=== PATIENT | male | born 1960 | race Caucasian/White ===

== ENCOUNTER 2017-08-19 15:08 | Inpatient (IN) | payer MEDICAID ==
--- NOTE | 2017-08-19 15:42 | ED Physician Chart ---
ED Chief Complaint/HPI - Patient Information Date Seen:: 08/19/17 Time Seen:: 15:25 Chief Complaint:: Abdominal Pain History of Present Illness:: onset x 2 day of intermittent, diffuse, crampy abdominal pain; pt denies H/As, S /T, neck pain, C/P, SOB, cough, A/N/V/D/C, fever, chills, or urinary s/s Allergies:: Allergies Allergy/AdvReac Type Severity Reaction Status Date / Time No Known Allergies Allergy Verified 08/19/17 15:24 Vitals:: Vital Signs - 8 hr 08/19/17 15:25 Temp 97.9 F HR 112 RR 17 BP 110/60 O2 Sat % 97 Historian:: Patient, EMS Review:: Nurse's Note Reviewed, EMS run form Reviewed ED Review of Systems - Review of Systems General/Constitutional: No fever, No chills, No weight loss, No weakness, No diaphoresis, No edema, No loss of appetite Skin: No skin lesions, No rash, No bruising Head: No headache, No light-headedness Eyes: No loss of vision, No pain, No diplopia ENT: No earache, No nasal drainage, No sore throat, No tinnitus Neck: No neck pain, No swelling, No thyromegaly, No stiffness, No mass noted Cardio Vascular: No chest pain, No palpitations, No PND, No orthopnea, No edema Pulmonary: No SOB, No cough, No sputum, No wheezing GI: Nausea, Vomiting, Diarrhea, Pain, No melena, No hematochezia, No constipation, No hematemesis G/U: No dysuria, No frequency, No hematuria, No nacturia Musculoskeletal: No bone or joint pain, No back pain, No muscle pain Endocrine: No polyuria, No polydipsia Psychiatric: No prior psych history, No depression, No anxiety, No suicidal ideation, No homicidal ideation, No auditory hallucination, No visual hallucination Hematopoietic: No bruising, No lymphadenopathy Allergic/Immuno: No urticaria, No angioedema Neurological: No syncope, No focal symptoms, No weakness, No paresthesia, No headache, No seizure, No dizziness, No confusion, No vertigo ED Past Medical History - Past Medical History Obtainable: Yes Past Medical History: HTN, Dyslipidemia, PUD/GERD, Arthritis Family History: Diabetes Melitus, HTN Social History: Non Smoker, No Alcohol, No Drug Use, Single, Care Facility Surgical History: other (Colostomy; Laparotomy; Splenectomy) Psychiatricy History: None Medication: Reviewed ED Physical Exam - Physical Examination General/Constitutional: Awake, Well-developed, well-nourished, Alert, No distress, GCS 15, Non-toxic appearing, Ambulatory Head: Atraumatic Eyes: Lids, conjuctiva normal, PERRL, EOMI Skin: Nl inspection, No rash, No skin lesions, No ecchymosis, Well hydrated, No lymphadenopathy ENMT: External ears, nose nl, TM canals nl, Nasal exam nl, Lips, teeth, gums nl , Oropharynx nl, Tonsils nl Neck: Nontender, Full ROM w/o pain, No JVD, No nuchal rigidity, No bruit, No mass, No stridor Respiratory: Nl effort/Exclusion, Clear to Auscultation, No Wheeze/Rhonchi/Rales Cardio Vascular: RRR, No murmur, gallop, rubs, NL S1 S2, Carotid/Femoral/Distal pulses equal bilaterally GI: No tenderness/rebounding/guarding, No organomegaly, No hernia, Normal BS's, Nondistended, No mass/bruits, No McBurney tenderness, Rectum exam nl Other GI comments:: no pulsatile masses; + Colostomy Bag; no active bleeding : No CVA tenderness Extremities: No tenderness or effusion, Full ROM, normal strength in all extremities, No edema, Normal digits & nails Neuro/Psych: Alert/oriented, DTR's symmetric, Normal sensory exam, Normal motor strength, Judgement/insight normal, Mood normal, Normal gait, No focal deficits Misc: Normal back, No paraspinal tenderness ED Labs/Radiology/EKG Results - Lab Results Comments:: WBC: 20.5; ; Na+: 128; Platelets: 766 - Radiology Results Comments:: CXR: NAD - EKG Interpretations EKG Time:: 15:50 Rate & Rhythm: 105; ST Comments:: non-specific st-t changes ED Septic Shock - . Is Septic Shock (SBP<90, OR Lactate>4 mmol\L) present?: No - <6hrs of presentation: Vital Signs: Vital Signs - 8 hr 08/19/17 15:25 Temp 97.9 F HR 112 RR 17 BP 110/60 O2 Sat % 97 ED Reassessment (Disposition) - Reassessment Reassessment Condition:: Improved - Diagnosis Diagnosis:: Hyponatremia; Thrombocythemia; Leukocytosis; Abdominal Pain; Sepsis; Dehydration - Aftercare/Follow up Instructions Aftercare/Follow-Up Instructions:: Counseled pt regarding lab results/diagnosis & need follow up, Counseled pt & family regarding lab results/diagnosis & need follow up - Patient Disposition Discharge/Transfer:: Acute Care w/in this hosp Accepting Physician:: Dr. Oneal Time Called:: [id number] Time Responded:: 17:15 Admitted to:: Telemetry Spoke to:: Dr. Oneal Admitting Medical Physician:: Dr. Oneal Condition at Disposition:: Stable, Improved
[2017-08-19] MEDS ORDERED: Sodium Chloride 0.9% 1,000 ML IV ONE (15:44)
[2017-08-19 16:23] LABS: BASOPHILE ABSOLUTE 0.2 Th/cumm (0-0.2); EOSINOPHILE ABSOLUTE 0.3 Th/cmm (0.1-0.4); HEMATOCRIT 36.3 % (41.0-60); MEAN CELL VOLUME 80.6 fl (80-99); MEAN CORPUSCULAR HEMOGLOBIN 26.5 pg (26.0-30.0); MEAN CORPUSCULAR HGB CONC 32.9 pg (28.0-36.0); MEAN PLATELET VOLUME 6.8 fl; MONOCYTE ABSOLUTE 1.4 Th/cmm (0.3-1.0); NEUTROPHILE ABSOLUTE 15.6 Th/cmm (1.8-8.0); RED BLOOD COUNT 4.51 Mil/cmm (4.30-5.70); RED CELL DISTRIBUTION WIDTH 14.2 % (11.5-20.0)
[2017-08-19 16:30] LABS: WHITE BLOOD COUNT 20.5 Th/cmm (4.8-10.8)
[2017-08-19 16:31] LABS: PLATELET COUNT 766 Th/cmm (150-400)
[2017-08-19 16:45] LABS: ALB/GLOB RATIO 0.7 (1.0-1.8); ALBUMIN 3.2 gm/dL (4.2-5.5); ALKALINE PHOSPHATASE 87 U/L (34-104); ANION GAP 14.7 (7.0-16.0); BILIRUBIN,TOTAL 0.5 mg/dL (0.3-1.0); BUN - UREA NITROGEN 20 mg/dL (7-25); CALCIUM SERUM 9.7 mg/dL (8.6-10.3); CARBON DIOXIDE 20.7 mEq/L (21.0-31.0); CHLORIDE 97 mEq/L (98-107); CHOLESTEROL 78 mg/dL (<200); CREATININE - SERUM 1.1 mg/dL (0.7-1.3); CREATININE KINASE 12 U/L (30-223); GFR AFRICAN-AMERICAN > 60.0 ml/min (>90); GFR NON AFRICAN-AMERICAN > 60.0 ml/min; GLUCOSE 134 mg/dL (70-105); HDL -HIGH DENSITY LIPOPROTEIN 35 mg/dL (23-92); POTASSIUM SERUM 4.4 mEq/L (3.5-5.1); SGOT 27 U/L (13-39); SGPT/ALT 44 U/L (7-52); SODIUM SERUM 128 mEq/L (136-145); TOTAL PROTEIN,SERUM 7.7 gm/dL (6.0-8.3); TRIGLYCERIDES 160 mg/dL (<150)
[2017-08-19 16:46] LABS: AMYLASE SERUM 71 U/L (29-103); LIPASE 19 U/L (11-82)
[2017-08-19 17:08] LABS: INR 1.72 (0.5-1.4); PROTHROMBIN TIME (TEST) 18.4 SECONDS (9.5-11.5)
[2017-08-19] MEDS ORDERED: cefTRIAXone 1 GM in Sodium Chloride 0.9% 50 ML IV ONE (17:13)
[2017-08-19] MEDS ORDERED: Albuterol/Ipratropium Neb 3 ML AERS HHN ONE ×2 (18:54→20:27)
[2017-08-19 18:58] LABS: ATYPICAL LYMPH 1 %; BAND NEUTROPHILE 3 % (0-10); EOSINOPHIL 3 % (0-5); LYMPHOCYTE 19 % (20-50); MONOCYTE 5 % (2-10); NEUTROPHILS 69 % (40-80); TOTAL CELLS COUNTED 100
[2017-08-19 18:59] LABS: HYPOCHROMIA 1+; PLATELET ESTIMATE INCREASED PLATELETS (NORMAL)
[2017-08-19] MEDS ORDERED: Atorvastatin Calcium 10 MG TAB PO SCH (21:00)
[2017-08-19] MEDS ORDERED: Piperacillin Sodium/Tazobact 2.25 gm Vial IV ONE (21:51)
[2017-08-20] MEDS ORDERED: Piperacillin Sodium/Tazobact 2.25 gm Vial IV ONE (03:39)
[2017-08-20] MEDS: Albuterol/Ipratropium Neb 3 ML AERS HHN SCH ×4 (07:39→19:30)
--- NOTE | 2017-08-20 08:06 | Diagnostic Imaging Report ---
CT abdomen and pelvis without intravenous contrast Indication: Abdominal pain Comparison: None, Technique: Axial images were obtained from the lung bases to the bilateral proximal femurs without IV contrast. Reconstructions reconstructions were made. total DLP: 817, CTDI16 FINDINGS: Hypoventilatory atelectatic changes of the lung bases are noted. Assessment of the solid organs is limited due to lack of IV contrast. There are multiple low-density lesions of the liver the largest within the right lobe measuring 2.5 cm. Hounsfield units are most suggestive of cysts. Mildly prominent liver is noted. There are areas of indeterminate low density seen along the peripheral aspects of the spleen. Splenule's are noted. Findings are noted. No focal pancreatic or adrenal lesions. No evidence of hydronephrosis. Mild nonspecific bilateral perinephric inflammatory changes are noted. The prostate gland is markedly enlarged measuring 6 cm transverse x 5 cm AP containing calcifications. Small fat-containing left inguinal hernia are noted. Diffuse postsurgical changes of bowel loops are noted with left lower quadrant ostomy. There is also severe dehiscence of the midline abdominal wall with apposition of bowel loops in this region. Mild inflammatory changes are seen along abdominal wall including the anterior and lateral aspects. There is also small amount of fluid seen along the right lateral abdominal wall measuring 1.5 x 1.6 cm. There may be a small fat-containing hernia in this region. No evidence of free abdominal air or free abdominal fluid. Degenerative changes of the spine and pelvis are noted. There is a 1.6 cm sclerotic lesion of the left intertrochanteric region. Additional sclerotic lesions of the left iliac bone are noted. IMPRESSION: Diffuse postsurgical changes including evidence of bowel resection. Evaluation was limited due to lack of oral contrast, however, no evidence of bowel obstruction. There is severe dehiscence of the midline abdominal wall with close apposition of bowel loops. Please correlate with clinical and surgical history. A left lower quadrant ostomy is also noted. Scattered inflammatory changes throughout the abdominal wall with small amount of fluid seen along the right upper abdominal wall with possible small fat herniation in this region just. Somewhat heterogeneous spleen. Findings are indeterminate however infectious/inflammatory process or subtle splenic infarcts cannot be excluded. If indicated short-term follow CT with IV contrast may provide additional detail and assessment Markedly enlarged prostate gland. Please correlate with clinical findings. 1.6 cm sclerotic lesion of the left femoral intertrochanteric region. Additional sclerotic lesions of the left iliac bone also noted. Given these findings, metastatic disease cannot be excluded and further assessment with nuclear medicine bone scan is recommended. Hepatic low-density lesions most construction sales representative of cysts. The liver is also mildly prominent.
--- NOTE | 2017-08-20 08:09 | Diagnostic Imaging Report ---
Portable chest x-ray HISTORY: Pain Allowing for portable technique, the overall heart size appears to be at the upper limits of normal. No focal pulmonary processes. No hilar or mediastinal abnormalities. IMPRESSION: No acute abnormalities
[2017-08-20] MEDS: Pantoprazole 40 mg EC Tab PO SCH (08:22)
[2017-08-20] MEDS: Aspirin 81mg Chewable Tab PO SCH (08:22)
[2017-08-20] MEDS: Multivitamin w/ Minerals Tab PO SCH (08:22)
[2017-08-20] MEDS: Lactobacillus Rhamnosus GG 15 Billion CFU CAP.SPRINK PO SCH (08:25)
[2017-08-20] MEDS ORDERED: IOHEXOL 300mgI/mL 100 ML VIAL PO ONE (08:38)
[2017-08-20] MEDS ORDERED: Mag Sulfate 2gm/50mL Premix 2 GM/50 ML BAG IV PRN (08:48)
[2017-08-20] MEDS ORDERED: Non-Formulary Item 1 EA (Amino Acids/Protein Hydrolys [Pro-Stat Awc Liquid] 30 ML) PO SCH (09:00)
--- NOTE | 2017-08-20 09:39 | General Progress Note ---
Subjective - Review of Systems Service Date: 08/20/17 Events since last encounter: WBC 20,500 had surgery on 06/18/17 for "ruptured spleen" as a result of coughing? another surgery after that a week later CT scan now shows spleen still visible Plan: obtain old records from [facility] has larger dehisced wound of abdominal incision claims alcohol, denies drugs? blood culture ordered Objective - Results Result Diagrams: 08/19/17 16:07 08/19/17 16:07 Recent Labs: Laboratory Last Values WBC 20.5 Th/cmm (4.8-10.8) H* 08/19/17 16:07 RBC 4.51 Mil/cmm (4.30-5.70) 08/19/17 16:07 Hgb 12.0 gm/dL (12-16) 08/19/17 16:07 Hct 36.3 % (41.0-60) L 08/19/17 16:07 MCV 80.6 fl (80-99) 08/19/17 16:07 MCH 26.5 pg (26.0-30.0) 08/19/17 16:07 MCHC Differential 32.9 pg (28.0-36.0) 08/19/17 16:07 RDW 14.2 % (11.5-20.0) 08/19/17 16:07 Plt Count 766 Th/cmm (150-400) H* 08/19/17 16:07 MPV 6.8 fl 08/19/17 16:07 Band Neutrophils % 3 % (0-10) 08/19/17 16:07 Neutrophils (Manual) 69 % (40-80) 08/19/17 16:07 Lymphocytes 19 % (20-50) L 08/19/17 16:07 Monocytes 5 % (2-10) 08/19/17 16:07 Eosinophils 3 % (0-5) 08/19/17 16:07 Atypical Lymphocytes 1 % 08/19/17 16:07 Hypochromia 1+ 08/19/17 16:07 Platelet Estimate INCREASED PLATELETS (NORMAL) 08/19/17 16:07 Microcytosis 1+ 08/19/17 16:07 PT 18.4 SECONDS (9.5-11.5) H 08/19/17 16:07 INR 1.72 (0.5-1.4) H 08/19/17 16:07 Sodium 128 mEq/L (136-145) L 08/19/17 16:07 Potassium 4.4 mEq/L (3.5-5.1) 08/19/17 16:07 Chloride 97 mEq/L (98-107) L 08/19/17 16:07 Carbon Dioxide 20.7 mEq/L (21.0-31.0) L 08/19/17 16:07 Anion Gap 14.7 (7.0-16.0) 08/19/17 16:07 BUN 20 mg/dL (7-25) 08/19/17 16:07 Creatinine 1.1 mg/dL (0.7-1.3) 08/19/17 16:07 Est GFR ( Amer) > 60.0 ml/min (>90) 08/19/17 16:07 Est GFR (Non-Af Amer) > 60.0 ml/min 08/19/17 16:07 BUN/Creatinine Ratio 18.2 08/19/17 16:07 Glucose 134 mg/dL (70-105) H 08/19/17 16:07 Whole Bld Lactic Acid 1.97 mmol/L (0.60-1.99) 08/19/17 16:07 Calcium 9.7 mg/dL (8.6-10.3) 08/19/17 16:07 Total Bilirubin 0.5 mg/dL (0.3-1.0) 08/19/17 16:07 AST 27 U/L (13-39) 08/19/17 16:07 ALT 44 U/L (7-52) 08/19/17 16:07 Alkaline Phosphatase 87 U/L (34-104) 08/19/17 16:07 Creatine Kinase 12 U/L (30-223) L 08/19/17 16:07 Troponin I < 0.01 ng/mL (0.01-0.05) L 08/19/17 16:07 B-Natriuretic Peptide 11.7 pg/mL (5.0-100.0) 08/19/17 16:07 Total Protein 7.7 gm/dL (6.0-8.3) 08/19/17 16:07 Albumin 3.2 gm/dL (4.2-5.5) L 08/19/17 16:07 Globulin 4.5 gm/dL 08/19/17 16:07 Albumin/Globulin Ratio 0.7 (1.0-1.8) L 08/19/17 16:07 Triglycerides 160 mg/dL (<150) H 08/19/17 16:07 Cholesterol 78 mg/dL (<200) 08/19/17 16:07 LDL Cholesterol Direct 30 mg/dL (75-193) L 08/19/17 16:07 HDL Cholesterol 35 mg/dL (23-92) 08/19/17 16:07 Amylase 71 U/L (29-103) 08/19/17 16:07 Lipase 19 U/L (11-82) 08/19/17 16:07 - Physical Exam Vitals and I&O: Vital Signs Temp 97.0 F 08/20/17 08:39 Pulse 85 08/20/17 08:39 Resp 17 08/20/17 08:39 BP 137/78 08/20/17 08:39 Pulse Ox 100 08/20/17 08:39 Intake & Output 08/19/17 08/20/17 08/20/17 18:59 06:59 18:59 Intake Total 290 Output Total 250 Balance 40 Weight (lbs) 92.986 kg Intake: Intake, IV Amount 50 Piperacillin Sodium/ 50 Tazobact 2.25 gm In Sodium Chloride 0.9% 50 ml @ 100 mls/hr IV Q6H [facility] Rx#:[id number] Oral 240 Output: Other 250 Other: # Voids 400 Stool Characteristics Liquid Brown Active Medications: Current Medications Acetaminophen (Tylenol) 650 mg PO Q6HR PRN PRN Reason: MILD PAIN Stop: 10/18/17 18:50 Albuterol/Ipratropium (Duoneb Neb) 3 ml HHN QIDRT [facility] Stop: 10/19/17 06:59 Last Admin: 08/20/17 07:39 Dose: 3 ml Ascorbic Acid (Vitamin C) 500 mg PO DAILY [facility] Stop: 10/19/17 08:59 Last Admin: 08/20/17 08:22 Dose: 500 mg Aspirin (Aspirin Chewable) 81 mg PO DAILY [facility] Stop: 10/19/17 08:59 Last Admin: 08/20/17 08:22 Dose: 81 mg Atorvastatin Calcium (Lipitor) 40 mg PO HS [facility] Stop: 10/19/17 20:59 Enalapril Maleate (Vasotec) 5 mg PO DAILY [facility] Stop: 10/19/17 08:59 Last Admin: 08/20/17 08:22 Dose: 5 mg Famotidine (Pepcid) 20 mg PO Q12H [facility] Stop: 10/18/17 18:59 Last Admin: 08/20/17 08:20 Dose: 20 mg Heparin Sodium (Porcine) (Heparin) 5,000 units SUBQ Q12HR [facility] Stop: 10/19/17 08:59 Hydroxyzine HCl (Atarax) 25 mg PO Q8H [facility] Stop: 10/18/17 18:59 Last Admin: 08/20/17 03:47 Dose: 25 mg Piperacillin Sod/Tazobactam (Sod 2.25 gm/ Sodium Chloride) 50 mls @ 100 mls/hr IV Q6H [facility] Stop: 10/18/17 18:59 Last Admin: 08/20/17 09:03 Dose: Not Given Dextrose/Sodium Chloride (D5-0.9%Ns) 1,000 mls @ 75 mls/hr IV .[id number] [facility] Stop: 10/19/17 08:44 Magnesium Sulfate (Magnesium Sulfate Premix) 2 gm in 50 mls @ 25 mls/hr IV DAILY PRN PRN Reason: Magnesium level less than 1.6 Stop: 10/19/17 08:47 Lactobacillus Rhamnosus (Culturelle 15b) 1 each PO DAILY [facility] Stop: 10/19/17 08:59 Last Admin: 08/20/17 08:25 Dose: 1 each Loperamide HCl (Imodium) 2 mg PO Q12H [facility] Stop: 10/18/17 18:59 Last Admin: 08/20/17 08:21 Dose: 2 mg Lorazepam (Ativan) 0.5 mg PO Q6H PRN; Protocol PRN Reason: Anxiety Stop: 10/18/17 18:50 Oxycodone/Acetaminophen (Percocet 5/325mg Oral Tab) 1 tab PO Q4H PRN PRN Reason: MOD PAIN Stop: 10/18/17 18:50 Pantoprazole Sodium (Protonix) 40 mg PO DAILY [facility] Stop: 10/19/17 08:59 Last Admin: 08/20/17 08:22 Dose: 40 mg Paroxetine HCl (Paxil) 20 mg PO DAILY [facility] Stop: 10/19/17 08:59 Quetiapine Fumarate (Seroquel) 200 mg PO HS [facility] PRN Reason: Protocol Stop: 10/18/17 20:59 Sucralfate (Carafate) 1 gm PO AC [facility] Stop: 10/19/17 07:29 Last Admin: 08/20/17 08:21 Dose: 1 gm Assessment/Plan - Problem List Patient Problems: All Active Problems ABDOMINAL PAIN WITH NAUSEA AND DYSPNEA (Acute)
--- NOTE | 2017-08-20 11:32 | Diagnostic Imaging Report ---
CT scan abdomen and pelvis with intravenous contrast HISTORY: Pain, splenic infarcts Total DLP equals 855 CTDI equals 16.5 Axial sections were obtained from the xiphoid process down to the pubic symphysis following ministration of intravenous contrast. The exam is compared with a prior noncontrast study of August 19, 2017. Compared with the prior exam, several well-circumscribed round hypodense lesions noted in the liver consistent with cysts. There are 2 focal somewhat wedge-shaped hypodensities within the spleen. The largest measures approximately 2.5 cm. On this postcontrast exam, there is evidence of hypodense subcapsular perisplenic fluid. Exact etiology and significance is uncertain. An approximate 1.8 cm round hypodensity is noted near the splenic hilum consistent with an accessory spleen. No significant focal renal lesions are seen. No hydronephrosis. Again noted is severe dehiscence of the mid abdomen with bowel loops situated immediately adjacent to the exposed abdominal wall. Additional intra-abdominal surgical changes including ostomy placement noted. The exam of the pelvis demonstrates preservation of normal fat planes. No abnormal soft tissue masses or abnormal fluid collections. Again noted is marked enlargement of the prostate gland. Associated encroachment on the floor of the urinary bladder. Multiple sclerotic foci identified within the left pelvic region. Osteoblastic metastatic lesions cannot be excluded. IMPRESSION: 1. Evidence of subcapsular hypodense probably chronic perisplenic fluid. Additional hypodense somewhat wedge-shaped focal defects seen in the spleen. Splenic infarcts cannot be excluded. Exact etiology of the findings is uncertain (has there been a history of prior trauma to this region?). Clinical correlation needed. 2. No other changes from the findings reported in the earlier on the noncontrast exam of August 19, 2017.
--- NOTE | 2017-08-20 12:13 | History & Physical ---
ADMIT DATE: 08/19/2017 CHIEF COMPLAINT: Wound dehiscence. HISTORY OF PRESENT ILLNESS: The patient is a 57-year-old male. He has history of alcohol abuse, but he is not drinking few years. He is originally from [place]. He has been living in [facility]. He was at a sober living house in [facility] about 4 months ago. He states that he sneezed very hard and he had abdominal pain. He presented to the hospital where he was found to have splenic rupture. He is status post exploratory laparotomy and colostomy as well. He cannot give me the details of the surgery, but he says that there is partial splenic removal along with partial colon resection as well. Since then, he is not properly healed. He has been here locally at a [facility] facility. PAST MEDICAL HISTORY: Significant for depression, alcoholism, GERD, and mood disorder. SOCIAL HISTORY: Denies any history of tobacco abuse. He has history of extensive alcohol abuse, but he has been sober for a few years now. FAMILY HISTORY: Noncontributory. ALLERGIES: No known drug allergies. SURGICAL HISTORY: Positive for abdominal surgery about 3-4 months ago. MEDICATIONS: All medications reviewed and reconciled. REVIEW OF SYSTEMS: GENERAL: Positive recent fatigue and decreased appetite. HEENT: Denies any head trauma, change in vision, taste, hearing, or smell. Oral: Denies any pain or discharge. NECK: No recent tracheal deviation. SKIN: No recent rashes. PSYCHIATRIC: He has history of mood disorder and depression. ABDOMEN: Positive for abdominal discomfort. He has history of colostomy and recent surgery. GASTROINTESTINAL: Positive for nausea, but no vomiting. EXTREMITIES: No edema. PSYCHIATRIC: No history of psychosis. He does have a history of depression and mood disorder. RESPIRATORY: No history of COPD or asthma. PHYSICAL EXAMINATION: VITAL SIGNS: Temperature 97 degrees, heart rate is 85, respirations 18, blood pressure 137/78. Currently, there is no pain. He is resting. HEENT: No acute issues. NECK: Trachea is midline. CARDIOVASCULAR: Regular rate and rhythm. RESPIRATORY: Decreased breath sounds bilaterally. ABDOMEN: Wound dressing is intact. EXTREMITIES: No edema. PSYCHIATRIC: No psychosis or hallucination. NEUROLOGIC: No evidence of acute stroke or seizure activity. He has 5+ muscle strength upper and lower extremities. LABORATORY DATA: Sodium 120, potassium 4.4, chloride 97, bicarbonate 20.7, BUN 20, creatinine 1.1, glucose 134. Troponin is less than 0.01. Creatinine is 12. Albumin is 3.2. Amylase and lipase are normal at 71 and ___ respectively. White count is 20.5, hemoglobin is 12, platelet count 766,000. ASSESSMENT/PLAN: 1. Abdominal wound dehiscence. 2. Sepsis. 3. Reactive thrombocytosis. 4. Status post splenic rupture, status post surgery. 5. Gastroesophageal reflux disease. 6. Hyponatremia. 7. Moderate malnutrition. 8. Depression. PLAN: The patient is n.p.o. Dr. Damon has been consulted for surgery. He is on IV Zosyn. Follow up on CBC and cultures. Follow up on CBC and chemistry panel tomorrow. He is on IV D5 NS. He also has reactive thrombocytosis. I will put him on anticoagulation with heparin. Continue his home medications. JOB# [id number]
[2017-08-20 12:15] LABS: HEMATOCRIT 36.3 % (41.0-60); HEMOGLOBIN 11.7 gm/dL (12-16); MEAN CELL VOLUME 80.8 fl (80-99); MEAN CORPUSCULAR HGB CONC 32.2 pg (28.0-36.0); MEAN PLATELET VOLUME 7.2 fl; PLATELET COUNT 745 Th/cmm (150-400); RED BLOOD COUNT 4.49 Mil/cmm (4.30-5.70)
[2017-08-20 12:22] LABS: WHITE BLOOD COUNT 14.2 Th/cmm (4.8-10.8)
[2017-08-20 12:29] LABS: ALB/GLOB RATIO 0.8 (1.0-1.8); ALBUMIN 3.1 gm/dL (4.2-5.5); ALKALINE PHOSPHATASE 84 U/L (34-104); ANION GAP 16.2 (7.0-16.0); BILIRUBIN,TOTAL 0.6 mg/dL (0.3-1.0); BUN - UREA NITROGEN 16 mg/dL (7-25); CALCIUM SERUM 9.7 mg/dL (8.6-10.3); CHLORIDE 98 mEq/L (98-107); GFR AFRICAN-AMERICAN > 60.0 ml/min (>90); GFR NON AFRICAN-AMERICAN > 60.0 ml/min; GLUCOSE 127 mg/dL (70-105); POTASSIUM SERUM 4.2 mEq/L (3.5-5.1); SGOT 25 U/L (13-39); SGPT/ALT 37 U/L (7-52); SODIUM SERUM 133 mEq/L (136-145); TOTAL PROTEIN,SERUM 7.2 gm/dL (6.0-8.3)
[2017-08-20 12:34] LABS: TOTAL CELLS COUNTED 100
[2017-08-20 12:35] LABS: BAND NEUTROPHILE 2 % (0-10); EOSINOPHIL 5 % (0-5); LYMPHOCYTE 21 % (20-50); MONOCYTE 6 % (2-10); NEUTROPHILS 66 % (40-80); PLATELET ESTIMATE SLIGHT DECREASED (NORMAL)
[2017-08-20] MEDS: APAP/Oxycodone 5/325mg Oral Tab PO PRN (16:32)
[2017-08-20] MEDS: D5-0.9%NS 1,000 ML IV SCH (19:13)
[2017-08-21 05:57] LABS: % BASOPHILS 0.8 % (0.0-2.0); % EOSINOPHILS 3.6 % (0.0-5.0); % LYMPHOCYTES 16.8 % (20.0-50.0); % MONOCYTES 8.1 % (2.0-10.0); % NEUTROPHILS 70.7 % (40.0-80.0); BASOPHILE ABSOLUTE 0.1 Th/cumm (0-0.2); EOSINOPHILE ABSOLUTE 0.6 Th/cmm (0.1-0.4); HEMATOCRIT 33.7 % (41.0-60); LYMPHOCYTE ABSOLUTE 2.7 Th/cmm (1.5-3.0); MEAN CELL VOLUME 80.2 fl (80-99); MEAN CORPUSCULAR HEMOGLOBIN 26.2 pg (26.0-30.0); MEAN CORPUSCULAR HGB CONC 32.6 pg (28.0-36.0); MEAN PLATELET VOLUME 7.5 fl; MONOCYTE ABSOLUTE 1.3 Th/cmm (0.3-1.0); NEUTROPHILE ABSOLUTE 11.2 Th/cmm (1.8-8.0); PLATELET COUNT 656 Th/cmm (150-400); RED CELL DISTRIBUTION WIDTH 14.7 % (11.5-20.0)
[2017-08-21 05:58] LABS: WHITE BLOOD COUNT 15.9 Th/cmm (4.8-10.8)
[2017-08-21] MEDS: Albuterol/Ipratropium Neb 3 ML AERS HHN SCH ×4 (06:56→19:13)
[2017-08-21 07:07] LABS: ANION GAP 13.1 (7.0-16.0); BUN - UREA NITROGEN 13 mg/dL (7-25); CALCIUM SERUM 9.5 mg/dL (8.6-10.3); CARBON DIOXIDE 25.7 mEq/L (21.0-31.0); CHLORIDE 99 mEq/L (98-107); CREATININE - SERUM 0.9 mg/dL (0.7-1.3); GFR AFRICAN-AMERICAN > 60.0 ml/min (>90); GFR NON AFRICAN-AMERICAN > 60.0 ml/min; GLUCOSE 141 mg/dL (70-105); POTASSIUM SERUM 3.8 mEq/L (3.5-5.1); SODIUM SERUM 134 mEq/L (136-145)
--- NOTE | 2017-08-21 08:14 | General Progress Note ---
Subjective - Review of Systems Service Date: 08/21/17 Subjective: Pt seen and eval. No pain. Resting in bed. Dr. Damon saw him. He's requested records from [facility]. Pt remembers now that the sx was on may 29, 2017 at [facility]. no n,v,d or cp. No fevers. Has abd discomfort. No falls or sz. Objective - Results Result Diagrams: 08/21/17 04:45 08/21/17 04:45 Recent Labs: Laboratory Last Values WBC 15.9 Th/cmm (4.8-10.8) H 08/21/17 04:45 RBC 4.20 Mil/cmm (4.30-5.70) L 08/21/17 04:45 Hgb 11.0 gm/dL (12-16) L 08/21/17 04:45 Hct 33.7 % (41.0-60) L 08/21/17 04:45 MCV 80.2 fl (80-99) 08/21/17 04:45 MCH 26.2 pg (26.0-30.0) 08/21/17 04:45 MCHC Differential 32.6 pg (28.0-36.0) 08/21/17 04:45 RDW 14.7 % (11.5-20.0) 08/21/17 04:45 Plt Count 656 Th/cmm (150-400) H 08/21/17 04:45 MPV 7.5 fl 08/21/17 04:45 Neutrophils % 70.7 % (40.0-80.0) 08/21/17 04:45 Band Neutrophils % 2 % (0-10) 08/20/17 09:30 Lymphocytes % 16.8 % (20.0-50.0) L 08/21/17 04:45 Monocytes % 8.1 % (2.0-10.0) 08/21/17 04:45 Eosinophils % 3.6 % (0.0-5.0) 08/21/17 04:45 Basophils % 0.8 % (0.0-2.0) 08/21/17 04:45 Neutrophils (Manual) 66 % (40-80) 08/20/17 09:30 Lymphocytes 21 % (20-50) 08/20/17 09:30 Monocytes 6 % (2-10) 08/20/17 09:30 Eosinophils 5 % (0-5) 08/20/17 09:30 Atypical Lymphocytes 1 % 08/19/17 16:07 Hypochromia 1+ 08/19/17 16:07 Platelet Estimate SLIGHT DECREASED (NORMAL) 08/20/17 09:30 Microcytosis 1+ 08/19/17 16:07 PT 18.4 SECONDS (9.5-11.5) H 08/19/17 16:07 INR 1.72 (0.5-1.4) H 08/19/17 16:07 Sodium 134 mEq/L (136-145) L 08/21/17 04:45 Potassium 3.8 mEq/L (3.5-5.1) 08/21/17 04:45 Chloride 99 mEq/L (98-107) 08/21/17 04:45 Carbon Dioxide 25.7 mEq/L (21.0-31.0) 08/21/17 04:45 Anion Gap 13.1 (7.0-16.0) 08/21/17 04:45 BUN 13 mg/dL (7-25) 08/21/17 04:45 Creatinine 0.9 mg/dL (0.7-1.3) 08/21/17 04:45 Est GFR ( Amer) > 60.0 ml/min (>90) 08/21/17 04:45 Est GFR (Non-Af Amer) > 60.0 ml/min 08/21/17 04:45 BUN/Creatinine Ratio 14.4 08/21/17 04:45 Glucose 141 mg/dL (70-105) H 08/21/17 04:45 Whole Bld Lactic Acid 1.97 mmol/L (0.60-1.99) 08/19/17 16:07 Calcium 9.5 mg/dL (8.6-10.3) 08/21/17 04:45 Magnesium 1.9 mg/dL (1.9-2.7) 08/20/17 09:30 Total Bilirubin 0.6 mg/dL (0.3-1.0) 08/20/17 09:30 AST 25 U/L (13-39) 08/20/17 09:30 ALT 37 U/L (7-52) 08/20/17 09:30 Alkaline Phosphatase 84 U/L (34-104) 08/20/17 09:30 Creatine Kinase 12 U/L (30-223) L 08/19/17 16:07 Troponin I < 0.01 ng/mL (0.01-0.05) L 08/19/17 16:07 B-Natriuretic Peptide 11.7 pg/mL (5.0-100.0) 08/19/17 16:07 Total Protein 7.2 gm/dL (6.0-8.3) 08/20/17 09:30 Albumin 3.1 gm/dL (4.2-5.5) L 08/20/17 09:30 Globulin 4.1 gm/dL 08/20/17 09:30 Albumin/Globulin Ratio 0.8 (1.0-1.8) L 08/20/17 09:30 Triglycerides 160 mg/dL (<150) H 08/19/17 16:07 Cholesterol 78 mg/dL (<200) 08/19/17 16:07 LDL Cholesterol Direct 30 mg/dL (75-193) L 08/19/17 16:07 HDL Cholesterol 35 mg/dL (23-92) 08/19/17 16:07 Amylase 71 U/L (29-103) 08/19/17 16:07 Lipase 19 U/L (11-82) 08/19/17 16:07 - Physical Exam Vitals and I&O: Vital Signs Temp 97.5 F 08/21/17 04:00 Pulse 105 08/21/17 06:56 Resp 18 08/21/17 06:56 BP 127/67 08/21/17 04:00 Pulse Ox 97 08/21/17 06:56 Intake & Output 08/20/17 08/21/17 08/21/17 18:59 06:59 18:59 Intake Total 100 Balance 100 Weight (lbs) 93.123 kg Intake: Intake, IV Amount 100 Piperacillin Sodium/ 100 Tazobact 2.25 gm In Sodium Chloride 0.9% 50 ml @ 100 mls/hr IV Q6H [facility] Rx#:[id number] Other: # Voids 3 # Bowel Movements 1 Stool Characteristics Liquid Liquid Brown Brown Green Green Active Medications: Current Medications Acetaminophen (Tylenol) 650 mg PO Q6HR PRN PRN Reason: MILD PAIN Stop: 10/18/17 18:50 Albuterol/Ipratropium (Duoneb Neb) 3 ml HHN QIDRT [facility] Stop: 10/19/17 06:59 Last Admin: 08/21/17 06:56 Dose: 3 ml Ascorbic Acid (Vitamin C) 500 mg PO DAILY [facility] Stop: 10/19/17 08:59 Last Admin: 08/20/17 08:22 Dose: 500 mg Aspirin (Aspirin Chewable) 81 mg PO DAILY [facility] Stop: 10/19/17 08:59 Last Admin: 08/20/17 08:22 Dose: 81 mg Atorvastatin Calcium (Lipitor) 40 mg PO HS [facility] Stop: 10/19/17 20:59 Last Admin: 08/20/17 21:38 Dose: 40 mg Enalapril Maleate (Vasotec) 5 mg PO DAILY [facility] Stop: 10/19/17 08:59 Last Admin: 08/20/17 08:22 Dose: 5 mg Famotidine (Pepcid) 20 mg PO Q12H [facility] Stop: 10/18/17 18:59 Last Admin: 08/21/17 06:49 Dose: 20 mg Heparin Sodium (Porcine) (Heparin) 5,000 units SUBQ Q12HR [facility] Stop: 10/19/17 11:59 Last Admin: 08/20/17 21:39 Dose: 5,000 units Hydroxyzine HCl (Atarax) 25 mg PO Q8H [facility] Stop: 10/18/17 18:59 Last Admin: 08/21/17 02:08 Dose: Not Given Piperacillin Sod/Tazobactam (Sod 2.25 gm/ Sodium Chloride) 50 mls @ 100 mls/hr IV Q6H [facility] Stop: 10/18/17 18:59 Last Admin: 08/21/17 06:49 Dose: 100 mls/hr Dextrose/Sodium Chloride (D5-0.9%Ns) 1,000 mls @ 75 mls/hr IV .[id number] [facility] Stop: 10/19/17 08:44 Last Admin: 08/20/17 19:13 Dose: 75 mls/hr Magnesium Sulfate (Magnesium Sulfate Premix) 2 gm in 50 mls @ 25 mls/hr IV DAILY PRN PRN Reason: Magnesium level less than 1.6 Stop: 10/19/17 08:47 Lactobacillus Rhamnosus (Culturelle 15b) 1 each PO DAILY [facility] Stop: 10/19/17 08:59 Last Admin: 08/20/17 08:25 Dose: 1 each Loperamide HCl (Imodium) 2 mg PO Q12H [facility] Stop: 10/18/17 18:59 Last Admin: 08/21/17 06:49 Dose: 2 mg Lorazepam (Ativan) 0.5 mg PO Q6H PRN; Protocol PRN Reason: Anxiety Stop: 10/18/17 18:50 Mupirocin (Bactroban Oint) 1 appl TP BID [facility] Stop: 09/04/17 08:59 Oxycodone/Acetaminophen (Percocet 5/325mg Oral Tab) 1 tab PO Q4H PRN PRN Reason: MOD PAIN Stop: 10/18/17 18:50 Last Admin: 08/20/17 16:32 Dose: 1 tab Pantoprazole Sodium (Protonix) 40 mg PO DAILY [facility] Stop: 10/19/17 08:59 Last Admin: 08/20/17 08:22 Dose: 40 mg Paroxetine HCl (Paxil) 20 mg PO DAILY [facility] Stop: 10/19/17 08:59 Quetiapine Fumarate (Seroquel) 200 mg PO HS [facility] PRN Reason: Protocol Stop: 10/18/17 20:59 Last Admin: 08/20/17 21:39 Dose: 200 mg Sucralfate (Carafate) 1 gm PO AC [facility] Stop: 10/19/17 07:29 Last Admin: 08/21/17 06:49 Dose: 1 gm General: Alert, Oriented x3, Cooperative HEENT: Atraumatic, PERRLA Neck: Supple, no JVD Cardiovascular: Regular rate, Normal S1, Normal S2 Lungs: Clear to auscultation Assessment/Plan - Problem List Patient Problems: All Active Problems Sepsis Abd wall cellulitis Reactive thrombocytosis Status post ex lap in May 2017 for splenic rupture GERD Hyponatremia Mod [place] Depression - Assessment Assessment: continue IV Zosyn and wound care. WBC trending down. FU on plt count. Dr. Damon has requested records from [facility]. Continue snf meds. FU on chem 7 and cbc.
[2017-08-21] MEDS: Aspirin 81mg Chewable Tab PO SCH (09:12)
[2017-08-21] MEDS: Multivitamin w/ Minerals Tab PO SCH (09:12)
[2017-08-21] MEDS: Lactobacillus Rhamnosus GG 15 Billion CFU CAP.SPRINK PO SCH (09:13)
[2017-08-21] MEDS: metroNIDAZOLE 500mg/NS 100mL 500 MG/100 ML BAG IV SCH ×3 (09:13→21:05)
[2017-08-21] MEDS: Pantoprazole 40 mg EC Tab PO SCH (09:13)
--- NOTE | 2017-08-21 10:13 | General Progress Note ---
Subjective - Review of Systems Service Date: 08/21/17 Events since last encounter: patient now claims he had Ca of prostate 10 years ago and was treated for it. CT scan shows enlarged prostate with ? of pelvic mets will order tests PSA, alk phos and bone scan ordered Objective - Results Result Diagrams: 08/21/17 04:45 08/21/17 04:45 Recent Labs: Laboratory Last Values WBC 15.9 Th/cmm (4.8-10.8) H 08/21/17 04:45 RBC 4.20 Mil/cmm (4.30-5.70) L 08/21/17 04:45 Hgb 11.0 gm/dL (12-16) L 08/21/17 04:45 Hct 33.7 % (41.0-60) L 08/21/17 04:45 MCV 80.2 fl (80-99) 08/21/17 04:45 MCH 26.2 pg (26.0-30.0) 08/21/17 04:45 MCHC Differential 32.6 pg (28.0-36.0) 08/21/17 04:45 RDW 14.7 % (11.5-20.0) 08/21/17 04:45 Plt Count 656 Th/cmm (150-400) H 08/21/17 04:45 MPV 7.5 fl 08/21/17 04:45 Neutrophils % 70.7 % (40.0-80.0) 08/21/17 04:45 Band Neutrophils % 2 % (0-10) 08/20/17 09:30 Lymphocytes % 16.8 % (20.0-50.0) L 08/21/17 04:45 Monocytes % 8.1 % (2.0-10.0) 08/21/17 04:45 Eosinophils % 3.6 % (0.0-5.0) 08/21/17 04:45 Basophils % 0.8 % (0.0-2.0) 08/21/17 04:45 Neutrophils (Manual) 66 % (40-80) 08/20/17 09:30 Lymphocytes 21 % (20-50) 08/20/17 09:30 Monocytes 6 % (2-10) 08/20/17 09:30 Eosinophils 5 % (0-5) 08/20/17 09:30 Atypical Lymphocytes 1 % 08/19/17 16:07 Hypochromia 1+ 08/19/17 16:07 Platelet Estimate SLIGHT DECREASED (NORMAL) 08/20/17 09:30 Microcytosis 1+ 08/19/17 16:07 PT 18.4 SECONDS (9.5-11.5) H 08/19/17 16:07 INR 1.72 (0.5-1.4) H 08/19/17 16:07 Sodium 134 mEq/L (136-145) L 08/21/17 04:45 Potassium 3.8 mEq/L (3.5-5.1) 08/21/17 04:45 Chloride 99 mEq/L (98-107) 08/21/17 04:45 Carbon Dioxide 25.7 mEq/L (21.0-31.0) 08/21/17 04:45 Anion Gap 13.1 (7.0-16.0) 08/21/17 04:45 BUN 13 mg/dL (7-25) 08/21/17 04:45 Creatinine 0.9 mg/dL (0.7-1.3) 08/21/17 04:45 Est GFR ( Amer) > 60.0 ml/min (>90) 08/21/17 04:45 Est GFR (Non-Af Amer) > 60.0 ml/min 08/21/17 04:45 BUN/Creatinine Ratio 14.4 08/21/17 04:45 Glucose 141 mg/dL (70-105) H 08/21/17 04:45 Whole Bld Lactic Acid 1.97 mmol/L (0.60-1.99) 08/19/17 16:07 Calcium 9.5 mg/dL (8.6-10.3) 08/21/17 04:45 Magnesium 1.9 mg/dL (1.9-2.7) 08/20/17 09:30 Total Bilirubin 0.6 mg/dL (0.3-1.0) 08/20/17 09:30 AST 25 U/L (13-39) 08/20/17 09:30 ALT 37 U/L (7-52) 08/20/17 09:30 Alkaline Phosphatase 84 U/L (34-104) 08/20/17 09:30 Creatine Kinase 12 U/L (30-223) L 08/19/17 16:07 Troponin I < 0.01 ng/mL (0.01-0.05) L 08/19/17 16:07 B-Natriuretic Peptide 11.7 pg/mL (5.0-100.0) 08/19/17 16:07 Total Protein 7.2 gm/dL (6.0-8.3) 08/20/17 09:30 Albumin 3.1 gm/dL (4.2-5.5) L 08/20/17 09:30 Globulin 4.1 gm/dL 08/20/17 09:30 Albumin/Globulin Ratio 0.8 (1.0-1.8) L 08/20/17 09:30 Triglycerides 160 mg/dL (<150) H 08/19/17 16:07 Cholesterol 78 mg/dL (<200) 08/19/17 16:07 LDL Cholesterol Direct 30 mg/dL (75-193) L 08/19/17 16:07 HDL Cholesterol 35 mg/dL (23-92) 08/19/17 16:07 Amylase 71 U/L (29-103) 08/19/17 16:07 Lipase 19 U/L (11-82) 08/19/17 16:07 - Physical Exam Vitals and I&O: Vital Signs Temp 97.5 F 08/21/17 04:00 Pulse 112 08/21/17 09:13 Resp 18 08/21/17 06:56 BP 108/56 08/21/17 09:13 Pulse Ox 97 08/21/17 06:56 Intake & Output 08/20/17 08/21/17 08/21/17 18:59 06:59 18:59 Intake Total 100 Balance 100 Weight (lbs) 93.123 kg Intake: Intake, IV Amount 100 Piperacillin Sodium/ 100 Tazobact 2.25 gm In Sodium Chloride 0.9% 50 ml @ 100 mls/hr IV Q6H [facility] Rx#:[id number] Other: # Voids 3 # Bowel Movements 1 Stool Characteristics Liquid Liquid Brown Brown Green Green Active Medications: Current Medications Acetaminophen (Tylenol) 650 mg PO Q6HR PRN PRN Reason: MILD PAIN Stop: 10/18/17 18:50 Albuterol/Ipratropium (Duoneb Neb) 3 ml HHN QIDRT [facility] Stop: 10/19/17 06:59 Last Admin: 08/21/17 06:56 Dose: 3 ml Ascorbic Acid (Vitamin C) 500 mg PO DAILY [facility] Stop: 10/19/17 08:59 Last Admin: 08/21/17 09:13 Dose: 500 mg Aspirin (Aspirin Chewable) 81 mg PO DAILY [facility] Stop: 10/19/17 08:59 Last Admin: 08/21/17 09:12 Dose: 81 mg Atorvastatin Calcium (Lipitor) 40 mg PO HS [facility] Stop: 10/19/17 20:59 Last Admin: 08/20/17 21:38 Dose: 40 mg Enalapril Maleate (Vasotec) 5 mg PO DAILY [facility] Stop: 10/19/17 08:59 Last Admin: 08/21/17 09:13 Dose: 5 mg Famotidine (Pepcid) 20 mg PO Q12H [facility] Stop: 10/18/17 18:59 Last Admin: 08/21/17 06:49 Dose: 20 mg Heparin Sodium (Porcine) (Heparin) 5,000 units SUBQ Q12HR [facility] Stop: 10/19/17 11:59 Last Admin: 08/21/17 09:14 Dose: 5,000 units Hydroxyzine HCl (Atarax) 25 mg PO Q8H [facility] Stop: 10/18/17 18:59 Last Admin: 08/21/17 02:08 Dose: Not Given Piperacillin Sod/Tazobactam (Sod 2.25 gm/ Sodium Chloride) 50 mls @ 100 mls/hr IV Q6H [facility] Stop: 10/18/17 18:59 Last Admin: 08/21/17 06:49 Dose: 100 mls/hr Dextrose/Sodium Chloride (D5-0.9%Ns) 1,000 mls @ 75 mls/hr IV .[id number] [facility] Stop: 10/19/17 08:44 Last Admin: 08/20/17 19:13 Dose: 75 mls/hr Magnesium Sulfate (Magnesium Sulfate Premix) 2 gm in 50 mls @ 25 mls/hr IV DAILY PRN PRN Reason: Magnesium level less than 1.6 Stop: 10/19/17 08:47 Metronidazole (Flagyl) 500 mg in 100 mls @ 100 mls/hr IV Q8HR [facility] Stop: 10/20/17 08:59 Last Admin: 08/21/17 09:13 Dose: 100 mls/hr Lactobacillus Rhamnosus (Culturelle 15b) 1 each PO DAILY [facility] Stop: 10/19/17 08:59 Last Admin: 08/21/17 09:13 Dose: 1 each Loperamide HCl (Imodium) 2 mg PO Q12H [facility] Stop: 10/18/17 18:59 Last Admin: 08/21/17 06:49 Dose: 2 mg Lorazepam (Ativan) 0.5 mg PO Q6H PRN; Protocol PRN Reason: Anxiety Stop: 10/18/17 18:50 Mupirocin (Bactroban Oint) 1 appl TP BID [facility] Stop: 09/04/17 08:59 Last Admin: 08/21/17 09:12 Dose: 1 appl Oxycodone/Acetaminophen (Percocet 5/325mg Oral Tab) 1 tab PO Q4H PRN PRN Reason: MOD PAIN Stop: 10/18/17 18:50 Last Admin: 08/20/17 16:32 Dose: 1 tab Pantoprazole Sodium (Protonix) 40 mg PO DAILY [facility] Stop: 10/19/17 08:59 Last Admin: 08/21/17 09:13 Dose: 40 mg Paroxetine HCl (Paxil) 20 mg PO DAILY [facility] Stop: 10/19/17 08:59 Last Admin: 08/21/17 09:13 Dose: 20 mg Quetiapine Fumarate (Seroquel) 200 mg PO HS [facility] PRN Reason: Protocol Stop: 10/18/17 20:59 Last Admin: 08/20/17 21:39 Dose: 200 mg Sucralfate (Carafate) 1 gm PO AC [facility] Stop: 10/19/17 07:29 Last Admin: 08/21/17 06:49 Dose: 1 gm General: Alert, Oriented x3, Cooperative HEENT: Atraumatic, PERRLA Neck: Supple, no JVD Cardiovascular: Regular rate, Normal S1, Normal S2 Lungs: Clear to auscultation Assessment/Plan - Problem List Patient Problems: All Active Problems ABDOMINAL PAIN WITH NAUSEA AND DYSPNEA (Acute)
--- NOTE | 2017-08-21 10:32 | History & Physical ---
ADMIT DATE: 08/19/2017 REFERRING PHYSICIAN: Dr. Ward. REASON FOR CONSULTATION: Dehisced abdominal incision. Thank you for referring this patient to me. HISTORY OF PRESENT ILLNESS: This is a 57-year-old male who underwent emergency surgery at [facility] on 06/18, last year because of close "ruptured spleen" as a result of coughing. He claimed that they had to operate on him again a week later for reexploration. The patient admits to alcohol intake. Questionable about other illegal drugs. He apparently was in a rehab place and transferred to [facility] from where he was sent to the Emergency Room. PAST MEDICAL HISTORY: The patient is very poor at giving information, but now he admits to having had a prostatic CA about 10 years ago and received treatment for that. LABORATORY STUDIES: WBC was elevated to 20,500. The chemistry showed a blood glucose at 134. The albumin is 3.2, rest are essentially normal. He underwent CT scan of the abdomen, which showed that the spleen is still visible, but there are some cysts in the liver. There is a large dehiscence of the abdominal incision with bowel loops present. 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 PHYSICAL EXAMINATION: The patient has a large granulating a dehisced wound in the abdomen mostly on the left side and there is a functioning colostomy stoma. RECOMMENDATIONS: The patient will need to have operative records obtained from [facility]. An Urology evaluation for what appears to be a recurrent prostatic CA with bone metastasis. We will order test to verify this. We will follow with you. JOB# [id number]
[2017-08-21] MEDS: APAP/Oxycodone 5/325mg Oral Tab PO PRN ×2 (13:19→20:59)
[2017-08-22] MEDS: D5-0.9%NS 1,000 ML IV SCH ×2 (05:40→21:52)
[2017-08-22] MEDS: metroNIDAZOLE 500mg/NS 100mL 500 MG/100 ML BAG IV SCH ×3 (05:41→21:52)
[2017-08-22 05:59] LABS: % EOSINOPHILS 5.1 % (0.0-5.0); % LYMPHOCYTES 18.3 % (20.0-50.0); % MONOCYTES 8.7 % (2.0-10.0); % NEUTROPHILS 66.9 % (40.0-80.0); BASOPHILE ABSOLUTE 0.1 Th/cumm (0-0.2); EOSINOPHILE ABSOLUTE 0.8 Th/cmm (0.1-0.4); HEMOGLOBIN 9.5 gm/dL (12-16); LYMPHOCYTE ABSOLUTE 2.7 Th/cmm (1.5-3.0); MEAN CELL VOLUME 80.5 fl (80-99); MEAN CORPUSCULAR HEMOGLOBIN 26.1 pg (26.0-30.0); MEAN CORPUSCULAR HGB CONC 32.4 pg (28.0-36.0); MONOCYTE ABSOLUTE 1.3 Th/cmm (0.3-1.0); PLATELET COUNT 601 Th/cmm (150-400); RED BLOOD COUNT 3.62 Mil/cmm (4.30-5.70); RED CELL DISTRIBUTION WIDTH 14.8 % (11.5-20.0)
[2017-08-22 06:04] LABS: HEMATOCRIT 29.2 % (41.0-60); WHITE BLOOD COUNT 14.9 Th/cmm (4.8-10.8)
[2017-08-22 06:13] LABS: ANION GAP 6.7 (7.0-16.0); BUN - UREA NITROGEN 12 mg/dL (7-25); CALCIUM SERUM 8.7 mg/dL (8.6-10.3); CARBON DIOXIDE 24.2 mEq/L (21.0-31.0); CHLORIDE 106 mEq/L (98-107); CREATININE - SERUM 0.9 mg/dL (0.7-1.3); GFR AFRICAN-AMERICAN > 60.0 ml/min (>90); GFR NON AFRICAN-AMERICAN > 60.0 ml/min; GLUCOSE 329 mg/dL (70-105); POTASSIUM SERUM 3.9 mEq/L (3.5-5.1); SODIUM SERUM 133 mEq/L (136-145)
[2017-08-22] MEDS: Albuterol/Ipratropium Neb 3 ML AERS HHN SCH ×4 (06:54→18:32)
--- NOTE | 2017-08-22 07:42 | Diagnostic Imaging Report ---
Portable chest x-ray HISTORY: Shortness of breath, vascular catheter placement Compared with the prior exam of August 19, 2017, a right-sided vascular catheter has been inserted. The tip is in the region of the. Vena cava. No focal bony processes. There is a poor inspiration. However, the heart size appears generous. IMPRESSION: 1. New vascular catheter placement as noted above 2. No focal pulmonary processes
--- NOTE | 2017-08-22 08:13 | General Progress Note ---
Subjective - Review of Systems Service Date: 08/22/17 Events since last encounter: await bone scan and PSA Objective - Results Result Diagrams: 08/22/17 05:25 08/22/17 05:25 Recent Labs: Laboratory Last Values WBC 14.9 Th/cmm (4.8-10.8) H 08/22/17 05:25 RBC 3.62 Mil/cmm (4.30-5.70) L 08/22/17 05:25 Hgb 9.5 gm/dL (12-16) L 08/22/17 05:25 Hct 29.2 % (41.0-60) L D 08/22/17 05:25 MCV 80.5 fl (80-99) 08/22/17 05:25 MCH 26.1 pg (26.0-30.0) 08/22/17 05:25 MCHC Differential 32.4 pg (28.0-36.0) 08/22/17 05:25 RDW 14.8 % (11.5-20.0) 08/22/17 05:25 Plt Count 601 Th/cmm (150-400) H 08/22/17 05:25 MPV 7.0 fl 08/22/17 05:25 Neutrophils % 66.9 % (40.0-80.0) 08/22/17 05:25 Band Neutrophils % 2 % (0-10) 08/20/17 09:30 Lymphocytes % 18.3 % (20.0-50.0) L 08/22/17 05:25 Monocytes % 8.7 % (2.0-10.0) 08/22/17 05:25 Eosinophils % 5.1 % (0.0-5.0) H 08/22/17 05:25 Basophils % 1.0 % (0.0-2.0) 08/22/17 05:25 Neutrophils (Manual) 66 % (40-80) 08/20/17 09:30 Lymphocytes 21 % (20-50) 08/20/17 09:30 Monocytes 6 % (2-10) 08/20/17 09:30 Eosinophils 5 % (0-5) 08/20/17 09:30 Atypical Lymphocytes 1 % 08/19/17 16:07 Hypochromia 1+ 08/19/17 16:07 Platelet Estimate SLIGHT DECREASED (NORMAL) 08/20/17 09:30 Microcytosis 1+ 08/19/17 16:07 PT 18.4 SECONDS (9.5-11.5) H 08/19/17 16:07 INR 1.72 (0.5-1.4) H 08/19/17 16:07 Sodium 133 mEq/L (136-145) L 08/22/17 05:25 Potassium 3.9 mEq/L (3.5-5.1) 08/22/17 05:25 Chloride 106 mEq/L (98-107) 08/22/17 05:25 Carbon Dioxide 24.2 mEq/L (21.0-31.0) 08/22/17 05:25 Anion Gap 6.7 (7.0-16.0) L 08/22/17 05:25 BUN 12 mg/dL (7-25) 08/22/17 05:25 Creatinine 0.9 mg/dL (0.7-1.3) 08/22/17 05:25 Est GFR ( Amer) > 60.0 ml/min (>90) 08/22/17 05:25 Est GFR (Non-Af Amer) > 60.0 ml/min 08/22/17 05:25 BUN/Creatinine Ratio 13.3 08/22/17 05:25 Glucose 329 mg/dL (70-105) H 08/22/17 05:25 Whole Bld Lactic Acid 1.97 mmol/L (0.60-1.99) 08/19/17 16:07 Calcium 8.7 mg/dL (8.6-10.3) 08/22/17 05:25 Magnesium 1.9 mg/dL (1.9-2.7) 08/20/17 09:30 Total Bilirubin 0.6 mg/dL (0.3-1.0) 08/20/17 09:30 AST 25 U/L (13-39) 08/20/17 09:30 ALT 37 U/L (7-52) 08/20/17 09:30 Alkaline Phosphatase 84 U/L (34-104) 08/20/17 09:30 Creatine Kinase 12 U/L (30-223) L 08/19/17 16:07 Troponin I < 0.01 ng/mL (0.01-0.05) L 08/19/17 16:07 B-Natriuretic Peptide 11.7 pg/mL (5.0-100.0) 08/19/17 16:07 Total Protein 7.2 gm/dL (6.0-8.3) 08/20/17 09:30 Albumin 3.1 gm/dL (4.2-5.5) L 08/20/17 09:30 Globulin 4.1 gm/dL 08/20/17 09:30 Albumin/Globulin Ratio 0.8 (1.0-1.8) L 08/20/17 09:30 Triglycerides 160 mg/dL (<150) H 08/19/17 16:07 Cholesterol 78 mg/dL (<200) 08/19/17 16:07 LDL Cholesterol Direct 30 mg/dL (75-193) L 08/19/17 16:07 HDL Cholesterol 35 mg/dL (23-92) 08/19/17 16:07 Amylase 71 U/L (29-103) 08/19/17 16:07 Lipase 19 U/L (11-82) 08/19/17 16:07 - Physical Exam Vitals and I&O: Vital Signs Temp 96.8 F 08/22/17 04:00 Pulse 92 08/22/17 06:54 Resp 18 08/22/17 06:54 BP 93/59 08/22/17 04:00 Pulse Ox 98 08/22/17 06:54 Intake & Output 08/21/17 08/22/17 08/22/17 18:59 06:59 18:59 Intake Total 1750 1400 Output Total 1150 Balance 600 1400 Weight (lbs) 93.395 kg 92.986 kg Intake: Intake, IV Amount 150 1200 D5-0.9%Ns 1,000 ml @ 75 1000 mls/hr IV .[id number] [facility] Rx #:[id number] Piperacillin Sodium/ 50 100 Tazobact 2.25 gm In Sodium Chloride 0.9% 50 ml @ 100 mls/hr IV Q6H [facility] Rx#:[id number] metroNIDAZOLE 500mg/NS 100 100 100mL 500 mg In 100 ml @ 100 mls/hr IV Q8HR [facility] Rx #:[id number] Oral 1600 200 Output: Urine 850 Stool 300 Other: # Voids 3 # Bowel Movements 0 Stool Characteristics Liquid Liquid Brown Brown Green Green Active Medications: Current Medications Acetaminophen (Tylenol) 650 mg PO Q6HR PRN PRN Reason: MILD PAIN Stop: 10/18/17 18:50 Albuterol/Ipratropium (Duoneb Neb) 3 ml HHN QIDRT [facility] Stop: 10/19/17 06:59 Last Admin: 08/22/17 06:54 Dose: 3 ml Ascorbic Acid (Vitamin C) 500 mg PO DAILY [facility] Stop: 10/19/17 08:59 Last Admin: 08/21/17 09:13 Dose: 500 mg Aspirin (Aspirin Chewable) 81 mg PO DAILY [facility] Stop: 10/19/17 08:59 Last Admin: 08/21/17 09:12 Dose: 81 mg Atorvastatin Calcium (Lipitor) 40 mg PO HS [facility] Stop: 10/19/17 20:59 Last Admin: 08/21/17 20:59 Dose: 40 mg Enalapril Maleate (Vasotec) 5 mg PO DAILY [facility] Stop: 10/19/17 08:59 Last Admin: 08/21/17 09:13 Dose: 5 mg Famotidine (Pepcid) 20 mg PO Q12H [facility] Stop: 10/18/17 18:59 Last Admin: 08/22/17 06:58 Dose: 20 mg Heparin Sodium (Porcine) (Heparin) 5,000 units SUBQ Q12HR [facility] Stop: 10/19/17 11:59 Last Admin: 08/21/17 20:59 Dose: 5,000 units Hydroxyzine HCl (Atarax) 25 mg PO Q8H [facility] Stop: 10/18/17 18:59 Last Admin: 08/22/17 04:33 Dose: Not Given Piperacillin Sod/Tazobactam (Sod 2.25 gm/ Sodium Chloride) 50 mls @ 100 mls/hr IV Q6H [facility] Stop: 10/18/17 18:59 Last Admin: 08/22/17 06:57 Dose: 100 mls/hr Dextrose/Sodium Chloride (D5-0.9%Ns) 1,000 mls @ 75 mls/hr IV .[id number] [facility] Stop: 10/19/17 08:44 Last Admin: 08/22/17 05:40 Dose: 75 mls/hr Magnesium Sulfate (Magnesium Sulfate Premix) 2 gm in 50 mls @ 25 mls/hr IV DAILY PRN PRN Reason: Magnesium level less than 1.6 Stop: 10/19/17 08:47 Metronidazole (Flagyl) 500 mg in 100 mls @ 100 mls/hr IV Q8HR [facility] Stop: 10/20/17 08:59 Last Admin: 08/22/17 05:41 Dose: 100 mls/hr Lactobacillus Rhamnosus (Culturelle 15b) 1 each PO DAILY [facility] Stop: 10/19/17 08:59 Last Admin: 08/21/17 09:13 Dose: 1 each Loperamide HCl (Imodium) 2 mg PO Q12H [facility] Stop: 10/18/17 18:59 Last Admin: 08/22/17 06:58 Dose: 2 mg Lorazepam (Ativan) 0.5 mg PO Q6H PRN; Protocol PRN Reason: Anxiety Stop: 10/18/17 18:50 Mupirocin (Bactroban Oint) 1 appl TP BID [facility] Stop: 09/04/17 08:59 Last Admin: 08/21/17 17:33 Dose: 1 appl Oxycodone/Acetaminophen (Percocet 5/325mg Oral Tab) 1 tab PO Q4H PRN PRN Reason: MOD PAIN Stop: 10/18/17 18:50 Last Admin: 08/21/17 20:59 Dose: 1 tab Pantoprazole Sodium (Protonix) 40 mg PO DAILY [facility] Stop: 10/19/17 08:59 Last Admin: 08/21/17 09:13 Dose: 40 mg Paroxetine HCl (Paxil) 20 mg PO DAILY [facility] Stop: 10/19/17 08:59 Last Admin: 08/21/17 09:13 Dose: 20 mg Quetiapine Fumarate (Seroquel) 200 mg PO HS [facility] PRN Reason: Protocol Stop: 10/18/17 20:59 Last Admin: 08/21/17 20:59 Dose: 200 mg Sucralfate (Carafate) 1 gm PO AC [facility] Stop: 10/19/17 07:29 Last Admin: 08/22/17 06:58 Dose: 1 gm General: Alert, Oriented x3, Cooperative HEENT: Atraumatic, PERRLA Neck: Supple, no JVD Cardiovascular: Regular rate, Normal S1, Normal S2 Lungs: Clear to auscultation Assessment/Plan - Problem List Patient Problems: All Active Problems ABDOMINAL PAIN WITH NAUSEA AND DYSPNEA (Acute) Nutritional Asmnt/Malnutr-PDOC - Dietary Evaluation Malnutrition Findings (Please click <Entered> for more info): Nutritional Asmnt/Malnutrition Start: 08/20/17 08: 14 Text: Status: Complete Freq: Document 08/21/17 11:25 [email or web address] (Rec: 08/21/17 11:33 [email or web address]) Nutritional Asmnt/Malnutrition Patient General Information Nutritional Screening Consult Diagnosis dehiscence of abd wound Pertinent Medical Hx/Surgical Hx prostate ca, depression, ETOH abuse, GERD, 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 Explained diet to patient and RN spoke with MD to get diet changed so patient can have more foods. Patient experiencing intermittent nausea, states eats 100% when he is not nauseous but complains he gets too much food. Explained meal ordering process to patient. Patient denies chewing and swallowing issues. patient continues to repeat that he does not like wasting food and wants smaller lunches, unable to obtain any more pertinent information because of this. Current Diet Order/ Nutrition Support cardiac -> just changed to regular Patient / S.O Not Indicated Pertinent Medications vitamin c, vasoctec, pepcid, culturelle, immodium, mgso4, protonix Pertinent Labs 08/21 Na: 134, glucose: 127-141 Nutritional Hx/Data Height 1.63 m Height (Calculated Centimeters) 162.6 Current Weight (lbs) 92.986 kg Weight (Calculated Kilograms) 93.0 Weight (Calculated Grams) 72744.4 [place] Body Weight 130 % [place] Body Weight 158 Body Mass Index (BMI) 35.2 Weight Status Obese GI Symptoms GI Symptoms None Last BM BM: 08/21 Difficult in: None Skin Integrity/Comment: sacrum: stage II, surgical wound to abdomen Current %PO Good (75-100%) Estimated Nutritional Goals BEE in Kcals: Adj wt of IBW Calories/Kcals/Kg 25-30 Kcals Calculated 9043-9328 Protein: Adj wt of IBW Protein g/k-1.2 Protein Calculated 68-82 g Fluid: ml 4290-9269 mL (1 ml/kcal) Nutritional Problem 1. Problem Problem increased nutrient needs Etiology wounds Signs/Symptoms: stage II pressure ulcer Malnutrition Alert Is there a minimum of two criteria No selected? Query Text:Check all the applicable criteria. A minimum of two criteria are recommended for diagnosis of either severe or non-severe malnutrition. Malnutrition Related to Morbid Obesity Malnutrition related to morbid obesity No Intervention/Recommendation Recommendations by RD Protein supplementation Comments 1. Continue regular diet 2. Vanilla boost daily with breakfast for wound healingn Expected Outcomes/Goals Expected Outcomes/Goals PO intake >50%, improved skin integrity monitor wt, labs, skin, PO intake
[2017-08-22] MEDS: Multivitamin w/ Minerals Tab PO SCH (09:15)
[2017-08-22] MEDS: Lactobacillus Rhamnosus GG 15 Billion CFU CAP.SPRINK PO SCH (09:15)
[2017-08-22] MEDS: Aspirin 81mg Chewable Tab PO SCH (09:16)
[2017-08-22] MEDS: Pantoprazole 40 mg EC Tab PO SCH (09:16)
--- NOTE | 2017-08-22 09:19 | General Progress Note ---
Subjective - Review of Systems Service Date: 08/22/17 Subjective: Pt seen and eval. No pain. Resting in bed. Dr. Damon saw him. He's requested records from [facility]. Pt remembers now that the sx was on may 29, 2017 at [facility]. no n,v,d or cp. No fevers. Has abd discomfort. No falls or sz. Objective - Results Result Diagrams: 08/22/17 05:25 08/22/17 05:25 Recent Labs: Laboratory Last Values WBC 14.9 Th/cmm (4.8-10.8) H 08/22/17 05:25 RBC 3.62 Mil/cmm (4.30-5.70) L 08/22/17 05:25 Hgb 9.5 gm/dL (12-16) L 08/22/17 05:25 Hct 29.2 % (41.0-60) L D 08/22/17 05:25 MCV 80.5 fl (80-99) 08/22/17 05:25 MCH 26.1 pg (26.0-30.0) 08/22/17 05:25 MCHC Differential 32.4 pg (28.0-36.0) 08/22/17 05:25 RDW 14.8 % (11.5-20.0) 08/22/17 05:25 Plt Count 601 Th/cmm (150-400) H 08/22/17 05:25 MPV 7.0 fl 08/22/17 05:25 Neutrophils % 66.9 % (40.0-80.0) 08/22/17 05:25 Band Neutrophils % 2 % (0-10) 08/20/17 09:30 Lymphocytes % 18.3 % (20.0-50.0) L 08/22/17 05:25 Monocytes % 8.7 % (2.0-10.0) 08/22/17 05:25 Eosinophils % 5.1 % (0.0-5.0) H 08/22/17 05:25 Basophils % 1.0 % (0.0-2.0) 08/22/17 05:25 Neutrophils (Manual) 66 % (40-80) 08/20/17 09:30 Lymphocytes 21 % (20-50) 08/20/17 09:30 Monocytes 6 % (2-10) 08/20/17 09:30 Eosinophils 5 % (0-5) 08/20/17 09:30 Atypical Lymphocytes 1 % 08/19/17 16:07 Hypochromia 1+ 08/19/17 16:07 Platelet Estimate SLIGHT DECREASED (NORMAL) 08/20/17 09:30 Microcytosis 1+ 08/19/17 16:07 PT 18.4 SECONDS (9.5-11.5) H 08/19/17 16:07 INR 1.72 (0.5-1.4) H 08/19/17 16:07 Sodium 133 mEq/L (136-145) L 08/22/17 05:25 Potassium 3.9 mEq/L (3.5-5.1) 08/22/17 05:25 Chloride 106 mEq/L (98-107) 08/22/17 05:25 Carbon Dioxide 24.2 mEq/L (21.0-31.0) 08/22/17 05:25 Anion Gap 6.7 (7.0-16.0) L 08/22/17 05:25 BUN 12 mg/dL (7-25) 08/22/17 05:25 Creatinine 0.9 mg/dL (0.7-1.3) 08/22/17 05:25 Est GFR ( Amer) > 60.0 ml/min (>90) 08/22/17 05:25 Est GFR (Non-Af Amer) > 60.0 ml/min 08/22/17 05:25 BUN/Creatinine Ratio 13.3 08/22/17 05:25 Glucose 329 mg/dL (70-105) H 08/22/17 05:25 Whole Bld Lactic Acid 1.97 mmol/L (0.60-1.99) 08/19/17 16:07 Calcium 8.7 mg/dL (8.6-10.3) 08/22/17 05:25 Magnesium 1.9 mg/dL (1.9-2.7) 08/20/17 09:30 Total Bilirubin 0.6 mg/dL (0.3-1.0) 08/20/17 09:30 AST 25 U/L (13-39) 08/20/17 09:30 ALT 37 U/L (7-52) 08/20/17 09:30 Alkaline Phosphatase 84 U/L (34-104) 08/20/17 09:30 Creatine Kinase 12 U/L (30-223) L 08/19/17 16:07 Troponin I < 0.01 ng/mL (0.01-0.05) L 08/19/17 16:07 B-Natriuretic Peptide 11.7 pg/mL (5.0-100.0) 08/19/17 16:07 Total Protein 7.2 gm/dL (6.0-8.3) 08/20/17 09:30 Albumin 3.1 gm/dL (4.2-5.5) L 08/20/17 09:30 Globulin 4.1 gm/dL 08/20/17 09:30 Albumin/Globulin Ratio 0.8 (1.0-1.8) L 08/20/17 09:30 Triglycerides 160 mg/dL (<150) H 08/19/17 16:07 Cholesterol 78 mg/dL (<200) 08/19/17 16:07 LDL Cholesterol Direct 30 mg/dL (75-193) L 08/19/17 16:07 HDL Cholesterol 35 mg/dL (23-92) 08/19/17 16:07 Amylase 71 U/L (29-103) 08/19/17 16:07 Lipase 19 U/L (11-82) 08/19/17 16:07 - Physical Exam Vitals and I&O: Vital Signs Temp 96.8 F 08/22/17 04:00 Pulse 108 08/22/17 09:16 Resp 18 08/22/17 06:54 BP 107/63 08/22/17 09:16 Pulse Ox 98 08/22/17 06:54 Intake & Output 08/21/17 08/22/17 08/22/17 18:59 06:59 18:59 Intake Total 1750 1400 Output Total 1150 Balance 600 1400 Weight (lbs) 93.395 kg 92.986 kg Intake: Intake, IV Amount 150 1200 D5-0.9%Ns 1,000 ml @ 75 1000 mls/hr IV .[id number] [facility] Rx #:[id number] Piperacillin Sodium/ 50 100 Tazobact 2.25 gm In Sodium Chloride 0.9% 50 ml @ 100 mls/hr IV Q6H [facility] Rx#:[id number] metroNIDAZOLE 500mg/NS 100 100 100mL 500 mg In 100 ml @ 100 mls/hr IV Q8HR [facility] Rx #:[id number] Oral 1600 200 Output: Urine 850 Stool 300 Other: # Voids 3 # Bowel Movements 0 Stool Characteristics Liquid Liquid Brown Brown Green Green Active Medications: Current Medications Acetaminophen (Tylenol) 650 mg PO Q6HR PRN PRN Reason: MILD PAIN Stop: 10/18/17 18:50 Albuterol/Ipratropium (Duoneb Neb) 3 ml HHN QIDRT [facility] Stop: 10/19/17 06:59 Last Admin: 08/22/17 06:54 Dose: 3 ml Ascorbic Acid (Vitamin C) 500 mg PO DAILY [facility] Stop: 10/19/17 08:59 Last Admin: 08/22/17 09:16 Dose: 500 mg Aspirin (Aspirin Chewable) 81 mg PO DAILY [facility] Stop: 10/19/17 08:59 Last Admin: 08/22/17 09:16 Dose: 81 mg Atorvastatin Calcium (Lipitor) 40 mg PO HS [facility] Stop: 10/19/17 20:59 Last Admin: 08/21/17 20:59 Dose: 40 mg Enalapril Maleate (Vasotec) 5 mg PO DAILY [facility] Stop: 10/19/17 08:59 Last Admin: 08/22/17 09:16 Dose: 5 mg Famotidine (Pepcid) 20 mg PO Q12H [facility] Stop: 10/18/17 18:59 Last Admin: 08/22/17 06:58 Dose: 20 mg Heparin Sodium (Porcine) (Heparin) 5,000 units SUBQ Q12HR [facility] Stop: 10/19/17 11:59 Last Admin: 08/21/17 20:59 Dose: 5,000 units Hydroxyzine HCl (Atarax) 25 mg PO Q8H [facility] Stop: 10/18/17 18:59 Last Admin: 08/22/17 04:33 Dose: Not Given Piperacillin Sod/Tazobactam (Sod 2.25 gm/ Sodium Chloride) 50 mls @ 100 mls/hr IV Q6H [facility] Stop: 10/18/17 18:59 Last Admin: 08/22/17 06:57 Dose: 100 mls/hr Dextrose/Sodium Chloride (D5-0.9%Ns) 1,000 mls @ 75 mls/hr IV .[id number] [facility] Stop: 10/19/17 08:44 Last Admin: 08/22/17 05:40 Dose: 75 mls/hr Magnesium Sulfate (Magnesium Sulfate Premix) 2 gm in 50 mls @ 25 mls/hr IV DAILY PRN PRN Reason: Magnesium level less than 1.6 Stop: 10/19/17 08:47 Metronidazole (Flagyl) 500 mg in 100 mls @ 100 mls/hr IV Q8HR [facility] Stop: 10/20/17 08:59 Last Admin: 08/22/17 05:41 Dose: 100 mls/hr Lactobacillus Rhamnosus (Culturelle 15b) 1 each PO DAILY [facility] Stop: 10/19/17 08:59 Last Admin: 08/22/17 09:15 Dose: 1 each Loperamide HCl (Imodium) 2 mg PO Q12H [facility] Stop: 10/18/17 18:59 Last Admin: 08/22/17 06:58 Dose: 2 mg Lorazepam (Ativan) 0.5 mg PO Q6H PRN; Protocol PRN Reason: Anxiety Stop: 10/18/17 18:50 Mupirocin (Bactroban Oint) 1 appl TP BID [facility] Stop: 09/04/17 08:59 Last Admin: 08/21/17 17:33 Dose: 1 appl Oxycodone/Acetaminophen (Percocet 5/325mg Oral Tab) 1 tab PO Q4H PRN PRN Reason: MOD PAIN Stop: 10/18/17 18:50 Last Admin: 08/21/17 20:59 Dose: 1 tab Pantoprazole Sodium (Protonix) 40 mg PO DAILY [facility] Stop: 10/19/17 08:59 Last Admin: 08/22/17 09:16 Dose: 40 mg Paroxetine HCl (Paxil) 20 mg PO DAILY [facility] Stop: 10/19/17 08:59 Last Admin: 08/22/17 09:16 Dose: 20 mg Quetiapine Fumarate (Seroquel) 200 mg PO HS [facility] PRN Reason: Protocol Stop: 10/18/17 20:59 Last Admin: 08/21/17 20:59 Dose: 200 mg Sucralfate (Carafate) 1 gm PO AC [facility] Stop: 10/19/17 07:29 Last Admin: 08/22/17 06:58 Dose: 1 gm General: Alert, Oriented x3, Cooperative HEENT: Atraumatic, PERRLA Neck: Supple, no JVD Cardiovascular: Regular rate, Normal S1, Normal S2 Lungs: Clear to auscultation Assessment/Plan - Problem List Patient Problems: All Active Problems ABDOMINAL PAIN WITH NAUSEA AND DYSPNEA (Acute) - Assessment Assessment: Sepsis Abd wound dehiscence Status post splenic rupture ? Status post ex lap Alcoholism Mood disorder - Plan Plan: continue IV Zosyn and Flagyl and wound care. WBC trending down. FU on plt count. Dr. Damon has requested records from [facility]. Bone scan ordered by Dr. Damon Continue snf meds. FU on chem 7 and cbc. Nutritional Asmnt/Malnutr-PDOC - Dietary Evaluation Malnutrition Findings (Please click <Entered> for more info): Nutritional Asmnt/Malnutrition Start: 08/20/17 08: 14 Text: Status: Complete Freq: Document 08/21/17 11:25 [email or web address] (Rec: 08/21/17 11:33 [email or web address] [id number]) Nutritional Asmnt/Malnutrition Patient General Information Nutritional Screening Consult Diagnosis dehiscence of abd wound Pertinent Medical Hx/Surgical Hx prostate ca, depression, ETOH abuse, GERD, 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 Explained diet to patient and RN spoke with MD to get diet changed so patient can have more foods. Patient experiencing intermittent nausea, states eats 100% when he is not nauseous but complains he gets too much food. Explained meal ordering process to patient. Patient denies chewing and swallowing issues. patient continues to repeat that he does not like wasting food and wants smaller lunches, unable to obtain any more pertinent information because of this. Current Diet Order/ Nutrition Support cardiac -> just changed to regular Patient / S.O Not Indicated Pertinent Medications vitamin c, vasoctec, pepcid, culturelle, immodium, mgso4, protonix Pertinent Labs 08/21 Na: 134, glucose: 127-141 Nutritional Hx/Data Height 1.63 m Height (Calculated Centimeters) 162.6 Current Weight (lbs) 92.986 kg Weight (Calculated Kilograms) 93.0 Weight (Calculated Grams) 49432.4 [place] Body Weight 130 % [place] Body Weight 158 Body Mass Index (BMI) 35.2 Weight Status Obese GI Symptoms GI Symptoms None Last BM BM: 08/21 Difficult in: None Skin Integrity/Comment: sacrum: stage II, surgical wound to abdomen Current %PO Good (75-100%) Estimated Nutritional Goals BEE in Kcals: Adj wt of IBW Calories/Kcals/Kg 25-30 Kcals Calculated 9614-8012 Protein: Adj wt of IBW Protein g/k-1.2 Protein Calculated 68-82 g Fluid: ml 1201-7213 mL (1 ml/kcal) Nutritional Problem 1. Problem Problem increased nutrient needs Etiology wounds Signs/Symptoms: stage II pressure ulcer Malnutrition Alert Is there a minimum of two criteria No selected? Query Text:Check all the applicable criteria. A minimum of two criteria are recommended for diagnosis of either severe or non-severe malnutrition. Malnutrition Related to Morbid Obesity Malnutrition related to morbid obesity No Intervention/Recommendation Recommendations by RD Protein supplementation Comments 1. Continue regular diet 2. Vanilla boost daily with breakfast for wound healingn Expected Outcomes/Goals Expected Outcomes/Goals PO intake >50%, improved skin integrity monitor wt, labs, skin, PO intake
[2017-08-22] MEDS ORDERED: Probiotic Screen MC PRN (12:15)
[2017-08-22] MEDS: APAP/Oxycodone 5/325mg Oral Tab PO PRN (13:13)
--- NOTE | 2017-08-22 14:33 | Diagnostic Imaging Report ---
Radionuclide total body bone scan HISTORY: Prostate cancer 23.2 mCi technetium MDP was used in the exam. Somewhat heterogeneous activity noted through the thoracic spine consistent with arthritic changes. Fairly symmetric increased activity is noted about the knees also consistent with arthritic change. No other significant abnormal regions are foci of increased activity seen. No definite abnormal scintigraphic correlate for CT demonstrated sclerotic foci within the left pelvis and left femur. Bony lesions are most likely associated with a benign etiology. However, continued follow up/monitoring recommended. Correlation with laboratory data also advised. Normal activity seen within the urinary tract. IMPRESSION: 1. Activity within the spine and knees consistent with degenerative/arthritic changes 2. No other definite abnormal foci or regions of abnormal activity. Specifically, no definite abnormal scintigraphic correlate for CT demonstrated sclerotic foci within the left pelvis and left femur. These bony lesions may be associated with incidental benign etiologies (bone islands). However, continued follow up/monitoring recommended. Correlation with laboratory data (including alkaline phosphatase/PSA) recommended.
[2017-08-22 16:50] LABS: A1C % 5.7 % (4.0-6.0)
[2017-08-23] MEDS: metroNIDAZOLE 500mg/NS 100mL 500 MG/100 ML BAG IV SCH ×3 (05:17→21:07)
[2017-08-23 05:39] LABS: BASOPHILE ABSOLUTE 0.1 Th/cumm (0-0.2); EOSINOPHILE ABSOLUTE 0.7 Th/cmm (0.1-0.4); MEAN CORPUSCULAR HEMOGLOBIN 26.7 pg (26.0-30.0); MONOCYTE ABSOLUTE 1.1 Th/cmm (0.3-1.0)
[2017-08-23 05:44] LABS: % BASOPHILS 0.5 % (0.0-2.0); % EOSINOPHILS 4.8 % (0.0-5.0); % LYMPHOCYTES 15.3 % (20.0-50.0); % MONOCYTES 7.6 % (2.0-10.0); % NEUTROPHILS 71.8 % (40.0-80.0); HEMATOCRIT 27.7 % (41.0-60); HEMOGLOBIN 9.1 gm/dL (12-16); LYMPHOCYTE ABSOLUTE 2.3 Th/cmm (1.5-3.0); MEAN CELL VOLUME 81.7 fl (80-99); MEAN CORPUSCULAR HGB CONC 32.6 pg (28.0-36.0); MEAN PLATELET VOLUME 6.9 fl; NEUTROPHILE ABSOLUTE 10.7 Th/cmm (1.8-8.0); PLATELET COUNT 542 Th/cmm (150-400); RED CELL DISTRIBUTION WIDTH 14.8 % (11.5-20.0)
[2017-08-23 05:46] LABS: WHITE BLOOD COUNT 14.9 Th/cmm (4.8-10.8)
[2017-08-23 05:52] LABS: ANION GAP 7.1 (7.0-16.0); BUN - UREA NITROGEN 8 mg/dL (7-25); CALCIUM SERUM 8.4 mg/dL (8.6-10.3); CARBON DIOXIDE 21.6 mEq/L (21.0-31.0); CHLORIDE 109 mEq/L (98-107); CREATININE - SERUM 0.8 mg/dL (0.7-1.3); GFR AFRICAN-AMERICAN > 60.0 ml/min (>90); GFR NON AFRICAN-AMERICAN > 60.0 ml/min; GLUCOSE 289 mg/dL (70-105); POTASSIUM SERUM 3.7 mEq/L (3.5-5.1); SODIUM SERUM 134 mEq/L (136-145)
[2017-08-23] MEDS: Albuterol/Ipratropium Neb 3 ML AERS HHN SCH ×4 (07:25→19:01)
[2017-08-23] MEDS: Multivitamin w/ Minerals Tab PO SCH (08:37)
[2017-08-23] MEDS: APAP/Oxycodone 5/325mg Oral Tab PO PRN ×2 (08:37→16:19)
[2017-08-23] MEDS: Pantoprazole 40 mg EC Tab PO SCH (08:37)
[2017-08-23] MEDS: Lactobacillus Rhamnosus GG 15 Billion CFU CAP.SPRINK PO SCH (08:37)
[2017-08-23] MEDS: Aspirin 81mg Chewable Tab PO SCH (08:39)
--- NOTE | 2017-08-23 08:52 | General Progress Note ---
Subjective - Review of Systems Service Date: 08/23/17 Subjective: Pt seen and eval. No pain. Resting in bed. Dr. Damon saw him. He's requested records from [facility]. Pt remembers now that the sx was on may 29, 2017 at [facility]. no n,v,d or cp. No fevers. Has abd discomfort. No falls or sz. Pt very anxious. He says "I want surgery margi." Objective - Results Result Diagrams: 08/23/17 04:50 08/23/17 04:50 Recent Labs: Laboratory Last Values WBC 14.9 Th/cmm (4.8-10.8) H 08/23/17 04:50 RBC 3.40 Mil/cmm (4.30-5.70) L 08/23/17 04:50 Hgb 9.1 gm/dL (12-16) L 08/23/17 04:50 Hct 27.7 % (41.0-60) L 08/23/17 04:50 MCV 81.7 fl (80-99) 08/23/17 04:50 MCH 26.7 pg (26.0-30.0) 08/23/17 04:50 MCHC Differential 32.6 pg (28.0-36.0) 08/23/17 04:50 RDW 14.8 % (11.5-20.0) 08/23/17 04:50 Plt Count 542 Th/cmm (150-400) H 08/23/17 04:50 MPV 6.9 fl 08/23/17 04:50 Neutrophils % 71.8 % (40.0-80.0) 08/23/17 04:50 Band Neutrophils % 2 % (0-10) 08/20/17 09:30 Lymphocytes % 15.3 % (20.0-50.0) L 08/23/17 04:50 Monocytes % 7.6 % (2.0-10.0) 08/23/17 04:50 Eosinophils % 4.8 % (0.0-5.0) 08/23/17 04:50 Basophils % 0.5 % (0.0-2.0) 08/23/17 04:50 Neutrophils (Manual) 66 % (40-80) 08/20/17 09:30 Lymphocytes 21 % (20-50) 08/20/17 09:30 Monocytes 6 % (2-10) 08/20/17 09:30 Eosinophils 5 % (0-5) 08/20/17 09:30 Atypical Lymphocytes 1 % 08/19/17 16:07 Hypochromia 1+ 08/19/17 16:07 Platelet Estimate SLIGHT DECREASED (NORMAL) 08/20/17 09:30 Microcytosis 1+ 08/19/17 16:07 PT 18.4 SECONDS (9.5-11.5) H 08/19/17 16:07 INR 1.72 (0.5-1.4) H 08/19/17 16:07 Sodium 134 mEq/L (136-145) L 08/23/17 04:50 Potassium 3.7 mEq/L (3.5-5.1) 08/23/17 04:50 Chloride 109 mEq/L (98-107) H 08/23/17 04:50 Carbon Dioxide 21.6 mEq/L (21.0-31.0) 08/23/17 04:50 Anion Gap 7.1 (7.0-16.0) 08/23/17 04:50 BUN 8 mg/dL (7-25) 08/23/17 04:50 Creatinine 0.8 mg/dL (0.7-1.3) 08/23/17 04:50 Est GFR ( Amer) > 60.0 ml/min (>90) 08/23/17 04:50 Est GFR (Non-Af Amer) > 60.0 ml/min 08/23/17 04:50 BUN/Creatinine Ratio 10.0 08/23/17 04:50 Glucose 289 mg/dL (70-105) H 08/23/17 04:50 Hemoglobin A1c % 5.7 % (4.0-6.0) 08/22/17 05:25 Whole Bld Lactic Acid 1.97 mmol/L (0.60-1.99) 08/19/17 16:07 Calcium 8.4 mg/dL (8.6-10.3) L 08/23/17 04:50 Magnesium 1.9 mg/dL (1.9-2.7) 08/20/17 09:30 Total Bilirubin 0.6 mg/dL (0.3-1.0) 08/20/17 09:30 AST 25 U/L (13-39) 08/20/17 09:30 ALT 37 U/L (7-52) 08/20/17 09:30 Alkaline Phosphatase 84 U/L (34-104) 08/20/17 09:30 Creatine Kinase 12 U/L (30-223) L 08/19/17 16:07 Troponin I < 0.01 ng/mL (0.01-0.05) L 08/19/17 16:07 B-Natriuretic Peptide 11.7 pg/mL (5.0-100.0) 08/19/17 16:07 Total Protein 7.2 gm/dL (6.0-8.3) 08/20/17 09:30 Albumin 3.1 gm/dL (4.2-5.5) L 08/20/17 09:30 Globulin 4.1 gm/dL 08/20/17 09:30 Albumin/Globulin Ratio 0.8 (1.0-1.8) L 08/20/17 09:30 Triglycerides 160 mg/dL (<150) H 08/19/17 16:07 Cholesterol 78 mg/dL (<200) 08/19/17 16:07 LDL Cholesterol Direct 30 mg/dL (75-193) L 08/19/17 16:07 HDL Cholesterol 35 mg/dL (23-92) 08/19/17 16:07 Amylase 71 U/L (29-103) 08/19/17 16:07 Lipase 19 U/L (11-82) 08/19/17 16:07 - Physical Exam Vitals and I&O: Vital Signs Temp 98.6 F 08/22/17 20:00 Pulse 96 08/23/17 08:38 Resp 20 08/23/17 07:25 BP 109/61 08/23/17 08:38 Pulse Ox 94 08/23/17 07:25 Intake & Output 08/22/17 08/23/17 08/23/17 18:59 06:59 18:59 Intake Total 200 1200 Balance 200 1200 Intake: Intake, IV Amount 200 1200 D5-0.9%Ns 1,000 ml @ 75 1000 mls/hr IV .[id number] [facility] Rx #:[id number] Piperacillin Sodium/ 100 100 Tazobact 2.25 gm In Sodium Chloride 0.9% 50 ml @ 100 mls/hr IV Q6H [facility] Rx#:[id number] metroNIDAZOLE 500mg/NS 100 100 100mL 500 mg In 100 ml @ 100 mls/hr IV Q8HR [facility] Rx #:[id number] Other: Stool Characteristics Liquid Liquid Brown Green Active Medications: Current Medications Acetaminophen (Tylenol) 650 mg PO Q6HR PRN PRN Reason: MILD PAIN Stop: 10/18/17 18:50 Albuterol/Ipratropium (Duoneb Neb) 3 ml HHN QIDRT [facility] Stop: 10/19/17 06:59 Last Admin: 08/23/17 07:25 Dose: 3 ml Ascorbic Acid (Vitamin C) 500 mg PO DAILY [facility] Stop: 10/19/17 08:59 Last Admin: 08/23/17 08:39 Dose: 500 mg Aspirin (Aspirin Chewable) 81 mg PO DAILY [facility] Stop: 10/19/17 08:59 Last Admin: 08/23/17 08:39 Dose: 81 mg Atorvastatin Calcium (Lipitor) 40 mg PO HS [facility] Stop: 10/19/17 20:59 Last Admin: 08/22/17 21:53 Dose: 40 mg Enalapril Maleate (Vasotec) 5 mg PO DAILY [facility] Stop: 10/19/17 08:59 Last Admin: 08/23/17 08:38 Dose: 5 mg Famotidine (Pepcid) 20 mg PO Q12H [facility] Stop: 10/18/17 18:59 Last Admin: 08/23/17 06:48 Dose: 20 mg Heparin Sodium (Porcine) (Heparin) 5,000 units SUBQ Q12HR [facility] Stop: 10/19/17 11:59 Last Admin: 08/23/17 08:40 Dose: 5,000 units Hydroxyzine HCl (Atarax) 25 mg PO Q8H [facility] Stop: 10/18/17 18:59 Last Admin: 08/23/17 05:12 Dose: Not Given Piperacillin Sod/Tazobactam (Sod 2.25 gm/ Sodium Chloride) 50 mls @ 100 mls/hr IV Q6H [facility] Stop: 10/18/17 18:59 Last Admin: 08/23/17 06:47 Dose: 100 mls/hr Dextrose/Sodium Chloride (D5-0.9%Ns) 1,000 mls @ 75 mls/hr IV .[id number] [facility] Stop: 10/19/17 08:44 Last Admin: 08/22/17 21:52 Dose: 75 mls/hr Magnesium Sulfate (Magnesium Sulfate Premix) 2 gm in 50 mls @ 25 mls/hr IV DAILY PRN PRN Reason: Magnesium level less than 1.6 Stop: 10/19/17 08:47 Metronidazole (Flagyl) 500 mg in 100 mls @ 100 mls/hr IV Q8HR [facility] Stop: 10/20/17 08:59 Last Admin: 08/23/17 05:17 Dose: 100 mls/hr Lactobacillus Rhamnosus (Culturelle 15b) 1 each PO DAILY [facility] Stop: 10/19/17 08:59 Last Admin: 08/23/17 08:37 Dose: 1 each Loperamide HCl (Imodium) 2 mg PO Q12H [facility] Stop: 10/18/17 18:59 Last Admin: 08/23/17 06:48 Dose: 2 mg Lorazepam (Ativan) 0.5 mg PO Q6H PRN; Protocol PRN Reason: Anxiety Stop: 10/18/17 18:50 Miscellaneous (Probiotic Screen) 1 ea MC PRN PRN PRN Reason: PROTOCOL Stop: 10/21/17 12:14 Mupirocin (Bactroban Oint) 1 appl TP BID [facility] Stop: 09/04/17 08:59 Last Admin: 08/23/17 08:40 Dose: 1 appl Oxycodone/Acetaminophen (Percocet 5/325mg Oral Tab) 1 tab PO Q4H PRN PRN Reason: MOD PAIN Stop: 10/18/17 18:50 Last Admin: 08/23/17 08:37 Dose: 1 tab Pantoprazole Sodium (Protonix) 40 mg PO DAILY [facility] Stop: 10/19/17 08:59 Last Admin: 08/23/17 08:37 Dose: 40 mg Paroxetine HCl (Paxil) 20 mg PO DAILY [facility] Stop: 10/19/17 08:59 Last Admin: 08/23/17 08:37 Dose: 20 mg Quetiapine Fumarate (Seroquel) 200 mg PO HS [facility] PRN Reason: Protocol Stop: 10/18/17 20:59 Last Admin: 08/22/17 21:53 Dose: 200 mg Sucralfate (Carafate) 1 gm PO AC [facility] Stop: 10/19/17 07:29 Last Admin: 08/23/17 06:48 Dose: 1 gm General: Alert, Oriented x3, Cooperative HEENT: Atraumatic, PERRLA Neck: Supple, no JVD Cardiovascular: Regular rate, Normal S1, Normal S2 Lungs: Clear to auscultation Abdomen: Other (wound dressing intact) Assessment/Plan - Problem List Patient Problems: All Active Problems ABDOMINAL PAIN WITH NAUSEA AND DYSPNEA (Acute) - Assessment Assessment: Sepsis Abd wound dehiscence Status post splenic rupture ? Status post ex lap Alcoholism Mood disorder - Plan Plan: continue IV Zosyn and Flagyl and wound care. WBC trending down. FU on plt count. Dr. Damon has requested records from [facility]. Bone scan done. No acute issues. Continue snf meds. FU on chem 7 and cbc. ID consulted. Nutritional Asmnt/Malnutr-PDOC - Dietary Evaluation Malnutrition Findings (Please click <Entered> for more info): Nutritional Asmnt/Malnutrition Start: 08/20/17 08: 14 Text: Status: Complete Freq: Document 08/21/17 11:25 [email or web address] (Rec: 08/21/17 11:33 [email or web address]) Nutritional Asmnt/Malnutrition Patient General Information Nutritional Screening Consult Diagnosis dehiscence of abd wound Pertinent Medical Hx/Surgical Hx prostate ca, depression, ETOH abuse, GERD, 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 Explained diet to patient and RN spoke with MD to get diet changed so patient can have more foods. Patient experiencing intermittent nausea, states eats 100% when he is not nauseous but complains he gets too much food. Explained meal ordering process to patient. Patient denies chewing and swallowing issues. patient continues to repeat that he does not like wasting food and wants smaller lunches, unable to obtain any more pertinent information because of this. Current Diet Order/ Nutrition Support cardiac -> just changed to regular Patient / S.O Not Indicated Pertinent Medications vitamin c, vasoctec, pepcid, culturelle, immodium, mgso4, protonix Pertinent Labs 08/21 Na: 134, glucose: 127-141 Nutritional Hx/Data Height 1.63 m Height (Calculated Centimeters) 162.6 Current Weight (lbs) 92.986 kg Weight (Calculated Kilograms) 93.0 Weight (Calculated Grams) 53135.4 [place] Body Weight 130 % [place] Body Weight 158 Body Mass Index (BMI) 35.2 Weight Status Obese GI Symptoms GI Symptoms None Last BM BM: 08/21 Difficult in: None Skin Integrity/Comment: sacrum: stage II, surgical wound to abdomen Current %PO Good (75-100%) Estimated Nutritional Goals BEE in Kcals: Adj wt of IBW Calories/Kcals/Kg 25-30 Kcals Calculated 9415-0360 Protein: Adj wt of IBW Protein g/k-1.2 Protein Calculated 68-82 g Fluid: ml 7195-3530 mL (1 ml/kcal) Nutritional Problem 1. Problem Problem increased nutrient needs Etiology wounds Signs/Symptoms: stage II pressure ulcer Malnutrition Alert Is there a minimum of two criteria No selected? Query Text:Check all the applicable criteria. A minimum of two criteria are recommended for diagnosis of either severe or non-severe malnutrition. Malnutrition Related to Morbid Obesity Malnutrition related to morbid obesity No Intervention/Recommendation Recommendations by RD Protein supplementation Comments 1. Continue regular diet 2. Vanilla boost daily with breakfast for wound healingn Expected Outcomes/Goals Expected Outcomes/Goals PO intake >50%, improved skin integrity monitor wt, labs, skin, PO intake
--- NOTE | 2017-08-23 13:34 | General Progress Note ---
Subjective - Review of Systems Service Date: 08/23/17 Events since last encounter: op reports from [facility] - total of 8 surgeries Alk phos normal total body scan neg for mets PSA not back need Urology consult for large prostate - info from patient is not verifiable that he had surgery for CA and received chemo??? Objective - Results Result Diagrams: 08/23/17 04:50 08/23/17 04:50 Recent Labs: Laboratory Last Values WBC 14.9 Th/cmm (4.8-10.8) H 08/23/17 04:50 RBC 3.40 Mil/cmm (4.30-5.70) L 08/23/17 04:50 Hgb 9.1 gm/dL (12-16) L 08/23/17 04:50 Hct 27.7 % (41.0-60) L 08/23/17 04:50 MCV 81.7 fl (80-99) 08/23/17 04:50 MCH 26.7 pg (26.0-30.0) 08/23/17 04:50 MCHC Differential 32.6 pg (28.0-36.0) 08/23/17 04:50 RDW 14.8 % (11.5-20.0) 08/23/17 04:50 Plt Count 542 Th/cmm (150-400) H 08/23/17 04:50 MPV 6.9 fl 08/23/17 04:50 Neutrophils % 71.8 % (40.0-80.0) 08/23/17 04:50 Band Neutrophils % 2 % (0-10) 08/20/17 09:30 Lymphocytes % 15.3 % (20.0-50.0) L 08/23/17 04:50 Monocytes % 7.6 % (2.0-10.0) 08/23/17 04:50 Eosinophils % 4.8 % (0.0-5.0) 08/23/17 04:50 Basophils % 0.5 % (0.0-2.0) 08/23/17 04:50 Neutrophils (Manual) 66 % (40-80) 08/20/17 09:30 Lymphocytes 21 % (20-50) 08/20/17 09:30 Monocytes 6 % (2-10) 08/20/17 09:30 Eosinophils 5 % (0-5) 08/20/17 09:30 Atypical Lymphocytes 1 % 08/19/17 16:07 Hypochromia 1+ 08/19/17 16:07 Platelet Estimate SLIGHT DECREASED (NORMAL) 08/20/17 09:30 Microcytosis 1+ 08/19/17 16:07 PT 18.4 SECONDS (9.5-11.5) H 08/19/17 16:07 INR 1.72 (0.5-1.4) H 08/19/17 16:07 Sodium 134 mEq/L (136-145) L 08/23/17 04:50 Potassium 3.7 mEq/L (3.5-5.1) 08/23/17 04:50 Chloride 109 mEq/L (98-107) H 08/23/17 04:50 Carbon Dioxide 21.6 mEq/L (21.0-31.0) 08/23/17 04:50 Anion Gap 7.1 (7.0-16.0) 08/23/17 04:50 BUN 8 mg/dL (7-25) 08/23/17 04:50 Creatinine 0.8 mg/dL (0.7-1.3) 08/23/17 04:50 Est GFR ( Amer) > 60.0 ml/min (>90) 08/23/17 04:50 Est GFR (Non-Af Amer) > 60.0 ml/min 08/23/17 04:50 BUN/Creatinine Ratio 10.0 08/23/17 04:50 Glucose 289 mg/dL (70-105) H 08/23/17 04:50 Hemoglobin A1c % 5.7 % (4.0-6.0) 08/22/17 05:25 Whole Bld Lactic Acid 1.97 mmol/L (0.60-1.99) 08/19/17 16:07 Calcium 8.4 mg/dL (8.6-10.3) L 08/23/17 04:50 Magnesium 1.9 mg/dL (1.9-2.7) 08/20/17 09:30 Total Bilirubin 0.6 mg/dL (0.3-1.0) 08/20/17 09:30 AST 25 U/L (13-39) 08/20/17 09:30 ALT 37 U/L (7-52) 08/20/17 09:30 Alkaline Phosphatase 84 U/L (34-104) 08/20/17 09:30 Creatine Kinase 12 U/L (30-223) L 08/19/17 16:07 Troponin I < 0.01 ng/mL (0.01-0.05) L 08/19/17 16:07 B-Natriuretic Peptide 11.7 pg/mL (5.0-100.0) 08/19/17 16:07 Total Protein 7.2 gm/dL (6.0-8.3) 08/20/17 09:30 Albumin 3.1 gm/dL (4.2-5.5) L 08/20/17 09:30 Globulin 4.1 gm/dL 08/20/17 09:30 Albumin/Globulin Ratio 0.8 (1.0-1.8) L 08/20/17 09:30 Triglycerides 160 mg/dL (<150) H 08/19/17 16:07 Cholesterol 78 mg/dL (<200) 08/19/17 16:07 LDL Cholesterol Direct 30 mg/dL (75-193) L 08/19/17 16:07 HDL Cholesterol 35 mg/dL (23-92) 08/19/17 16:07 Amylase 71 U/L (29-103) 08/19/17 16:07 Lipase 19 U/L (11-82) 08/19/17 16:07 - Physical Exam Vitals and I&O: Vital Signs Temp 97.5 F 08/23/17 12:00 Pulse 96 08/23/17 12:30 Resp 20 08/23/17 12:30 BP 119/64 08/23/17 12:00 Pulse Ox 94 08/23/17 12:30 Intake & Output 08/22/17 08/23/17 08/23/17 18:59 06:59 18:59 Intake Total 200 1300 50 Balance 200 1300 50 Intake: Intake, IV Amount 200 1300 50 D5-0.9%Ns 1,000 ml @ 75 1000 mls/hr IV .[id number] [facility] Rx #:[id number] Piperacillin Sodium/ 100 100 50 Tazobact 2.25 gm In Sodium Chloride 0.9% 50 ml @ 100 mls/hr IV Q6H [facility] Rx#:[id number] metroNIDAZOLE 500mg/NS 100 200 100mL 500 mg In 100 ml @ 100 mls/hr IV Q8HR [facility] Rx #:[id number] Other: Stool Characteristics Liquid Liquid Liquid Brown Green Active Medications: Current Medications Acetaminophen (Tylenol) 650 mg PO Q6HR PRN PRN Reason: MILD PAIN Stop: 10/18/17 18:50 Albuterol/Ipratropium (Duoneb Neb) 3 ml HHN QIDRT [facility] Stop: 10/19/17 06:59 Last Admin: 08/23/17 12:30 Dose: 3 ml Ascorbic Acid (Vitamin C) 500 mg PO DAILY [facility] Stop: 10/19/17 08:59 Last Admin: 08/23/17 08:39 Dose: 500 mg Aspirin (Aspirin Chewable) 81 mg PO DAILY [facility] Stop: 10/19/17 08:59 Last Admin: 08/23/17 08:39 Dose: 81 mg Atorvastatin Calcium (Lipitor) 40 mg PO HS [facility] Stop: 10/19/17 20:59 Last Admin: 08/22/17 21:53 Dose: 40 mg Enalapril Maleate (Vasotec) 5 mg PO DAILY [facility] Stop: 10/19/17 08:59 Last Admin: 08/23/17 08:38 Dose: 5 mg Famotidine (Pepcid) 20 mg PO Q12H [facility] Stop: 10/18/17 18:59 Last Admin: 08/23/17 06:48 Dose: 20 mg Heparin Sodium (Porcine) (Heparin) 5,000 units SUBQ Q12HR [facility] Stop: 10/19/17 11:59 Last Admin: 08/23/17 08:40 Dose: 5,000 units Hydroxyzine HCl (Atarax) 25 mg PO Q8H [facility] Stop: 10/18/17 18:59 Last Admin: 08/23/17 11:11 Dose: 25 mg Piperacillin Sod/Tazobactam (Sod 2.25 gm/ Sodium Chloride) 50 mls @ 100 mls/hr IV Q6H [facility] Stop: 10/18/17 18:59 Last Admin: 08/23/17 12:28 Dose: 100 mls/hr Dextrose/Sodium Chloride (D5-0.9%Ns) 1,000 mls @ 75 mls/hr IV .[id number] [facility] Stop: 10/19/17 08:44 Last Admin: 02/22/18 21:52 Dose: 75 mls/hr Magnesium Sulfate (Magnesium Sulfate Premix) 2 gm in 50 mls @ 25 mls/hr IV DAILY PRN PRN Reason: Magnesium level less than 1.6 Stop: 10/19/17 08:47 Metronidazole (Flagyl) 500 mg in 100 mls @ 100 mls/hr IV Q8HR [facility] Stop: 10/20/17 08:59 Last Infusion: 08/23/17 06:20 Dose: Infused Lactobacillus Rhamnosus (Culturelle 15b) 1 each PO DAILY [facility] Stop: 10/19/17 08:59 Last Admin: 08/23/17 08:37 Dose: 1 each Loperamide HCl (Imodium) 2 mg PO Q12H [facility] Stop: 10/18/17 18:59 Last Admin: 08/23/17 06:48 Dose: 2 mg Lorazepam (Ativan) 0.5 mg PO Q6H PRN; Protocol PRN Reason: Anxiety Stop: 10/18/17 18:50 Miscellaneous (Probiotic Screen) 1 ea MC PRN PRN PRN Reason: PROTOCOL Stop: 10/21/17 12:14 Mupirocin (Bactroban Oint) 1 appl TP BID [facility] Stop: 09/04/17 08:59 Last Admin: 08/23/17 08:40 Dose: 1 appl Oxycodone/Acetaminophen (Percocet 5/325mg Oral Tab) 1 tab PO Q4H PRN PRN Reason: MOD PAIN Stop: 10/18/17 18:50 Last Admin: 08/23/17 08:37 Dose: 1 tab Pantoprazole Sodium (Protonix) 40 mg PO DAILY [facility] Stop: 10/19/17 08:59 Last Admin: 08/23/17 08:37 Dose: 40 mg Paroxetine HCl (Paxil) 20 mg PO DAILY [facility] Stop: 10/19/17 08:59 Last Admin: 08/23/17 08:37 Dose: 20 mg Quetiapine Fumarate (Seroquel) 200 mg PO HS [facility] PRN Reason: Protocol Stop: 10/18/17 20:59 Last Admin: 08/22/17 21:53 Dose: 200 mg Sucralfate (Carafate) 1 gm PO AC [facility] Stop: 10/19/17 07:29 Last Admin: 08/23/17 11:09 Dose: 1 gm General: Alert, Oriented x3, Cooperative HEENT: Atraumatic, PERRLA Neck: Supple, no JVD Cardiovascular: Regular rate, Normal S1, Normal S2 Lungs: Clear to auscultation Abdomen: Other (wound dressing intact) Assessment/Plan - Problem List Patient Problems: All Active Problems ABDOMINAL PAIN WITH NAUSEA AND DYSPNEA (Acute) Nutritional Asmnt/Malnutr-PDOC - Dietary Evaluation Malnutrition Findings (Please click <Entered> for more info): Nutritional Asmnt/Malnutrition Start: 08/20/17 08: 14 Text: Status: Complete Freq: Document 08/21/17 11:25 [email or web address] (Rec: 08/21/17 11:33 [email or web address] [email or web address]) Nutritional Asmnt/Malnutrition Patient General Information Nutritional Screening Consult Diagnosis dehiscence of abd wound Pertinent Medical Hx/Surgical Hx prostate ca, depression, ETOH abuse, GERD, 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 Explained diet to patient and RN spoke with MD to get diet changed so patient can have more foods. Patient experiencing intermittent nausea, states eats 100% when he is not nauseous but complains he gets too much food. Explained meal ordering process to patient. Patient denies chewing and swallowing issues. patient continues to repeat that he does not like wasting food and wants smaller lunches, unable to obtain any more pertinent information because of this. Current Diet Order/ Nutrition Support cardiac -> just changed to regular Patient / S.O Not Indicated Pertinent Medications vitamin c, vasoctec, pepcid, culturelle, immodium, mgso4, protonix Pertinent Labs 08/21 Na: 134, glucose: 127-141 Nutritional Hx/Data Height 1.63 m Height (Calculated Centimeters) 162.6 Current Weight (lbs) 92.986 kg Weight (Calculated Kilograms) 93.0 Weight (Calculated Grams) 26752.4 [place] Body Weight 130 % [place] Body Weight 158 Body Mass Index (BMI) 35.2 Weight Status Obese GI Symptoms GI Symptoms None Last BM BM: 08/21 Difficult in: None Skin Integrity/Comment: sacrum: stage II, surgical wound to abdomen Current %PO Good (75-100%) Estimated Nutritional Goals BEE in Kcals: Adj wt of IBW Calories/Kcals/Kg 25-30 Kcals Calculated 8408-8196 Protein: Adj wt of IBW Protein g/k-1.2 Protein Calculated 68-82 g Fluid: ml 8041-3318 mL (1 ml/kcal) Nutritional Problem 1. Problem Problem increased nutrient needs Etiology wounds Signs/Symptoms: stage II pressure ulcer Malnutrition Alert Is there a minimum of two criteria No selected? Query Text:Check all the applicable criteria. A minimum of two criteria are recommended for diagnosis of either severe or non-severe malnutrition. Malnutrition Related to Morbid Obesity Malnutrition related to morbid obesity No Intervention/Recommendation Recommendations by RD Protein supplementation Comments 1. Continue regular diet 2. Vanilla boost daily with breakfast for wound healingn Expected Outcomes/Goals Expected Outcomes/Goals PO intake >50%, improved skin integrity monitor wt, labs, skin, PO intake
[2017-08-23] MEDS: D5-0.9%NS 1,000 ML IV SCH (14:52)
--- NOTE | 2017-08-24 02:57 | Consultation ---
DATE OF CONSULTATION: 08/23/2017 INFECTIOUS DISEASE CONSULTATION REFERRING PHYSICIAN: Dr. Ward. REASON FOR CONSULTATION: Leukocytosis and abdominal wall wound. HISTORY OF PRESENT ILLNESS: The patient is 57-year-old a male with a past medical history of depression, alcohol abuse, GERD, mood disorder. He was admitted to [facility] in May 2017. He was diagnosed to have megacolon and required emergent surgery. He had exploratory laparotomy performed and partial colectomy done. The course was complicated and required multiple peritoneal washouts and surgeries. His wound was left open as he could not be approximated. Afterwards, [facility]. He comes back here and admitted to the hospital for open wound and closure. On initial evaluation, his temperature was 97.9 degrees Fahrenheit and WBC count 20,000. The patient was started on Zosyn and Flagyl. ID consult was called as WBC count was on higher side. ALLERGIES: NKDA. PAST MEDICAL HISTORY: Includes hypertension, dyslipidemia, peptic ulcer disease, GERD, arthritis, C. diff colitis, megacolon and multiple abdominal surgeries at [facility] in May and May 2017. PAST SURGICAL HISTORY: The patient has ileostomy. During the prolonged hospital course at [facility], the patient had partial colectomy followed by total colectomy and partial small bowel resection and ileostomy. The patient has history of C. diff colitis at the same time. SOCIAL HISTORY: The patient lives at a nursing facility, [facility]. He has a history of tobacco abuse as well as alcohol abuse. He is sober for last few years. Originally, he is from [place]. FAMILY HISTORY: Noncontributory. ALLERGIES: NKDA. MEDICATIONS: As per medication reconciliation sheet. Antibiotic jones, the patient is on Zosyn and Flagyl. REVIEW OF SYSTEMS: GENERAL: The patient denies any fever or chills. HEENT: The patient denies any diplopia, photophobia, or sore throat. RESPIRATORY: The patient denies any cough or shortness of breath. CVS: The patient chest pain or palpitation. GASTROINTESTINAL: The patient denies any nausea, vomiting, diarrhea or constipation. GENITOURINARY: The patient denies any dysuria, hematuria. MUSCULOSKELETAL: No muscle pain, no joint pain. HEMATOPOIETIC: No bruising. No bleeding tendency. SKIN: The patient has large abdominal wall wound, open. PHYSICAL EXAMINATION: VITAL SIGNS: Shows temperature is 96.3 degrees Fahrenheit, pulse is 96, respirations 17, blood pressure 109/61, oxygen saturation 96%. GENERAL: The patient is comfortable lying in the bed, not in acute distress. HEENT: Head is normocephalic. Oral cavity moist, pink tongue. Eyes: Pallor is present, no icterus. Pupils PERRLA, EOMI. NECK: Supple, no JVD, no bruit. Trachea in midline. CHEST: Bilateral breath sounds. No crackles, no wheezing. CARDIOVASCULAR: S1 and S2 within normal limits. Regular rhythm. No murmur, no gallop. ABDOMEN: The patient has an ileostomy in the left lower quadrant. The patient had a large abdominal wall wound with pink base. No surrounding erythema. The patient had serous and bloody discharge. EXTREMITIES: No cyanosis, no clubbing, no edema. NEUROLOGICAL: Alert, awake, oriented x 3. No focal deficit. LABORATORY DATA: Current lab shows WBC count is 14,900, hemoglobin 9.1, hematocrit 27.7, platelets are 542,000, and neutrophils 71.7. Sodium 134, potassium 3.7, chloride 109, bicarbonate is 21.6, BUN is 8, creatinine 0.8, and glucose is 289. Chest x-ray showed no active disease. There is a PICC line in the right forearm. CT scan of abdomen shows no significant abnormalities except for surgical changes and there is some evidence of subcapsular hypodense probably chronic perisplenic fluid. There is some hypodense somewhat ____ separate focal defects seen in the spleen, splenic infarct cannot be excluded. No other changes. Bone scan shows some bony islands at the left pelvis and left femur. IMPRESSION: 1. Leukocytosis, likely reactive to his abdominal wall wound, clean. No sign of any infection. 2. Status post multiple abdominal surgeries, history of frozen abdomen. 3. Chronic perisplenic fluid, 4. History of depression. 5. History of alcoholism. 6. Gastroesophageal reflux disease. 7. History of mood disorder. 8. History of clostridium difficile colitis and megacolon. RECOMMENDATION AND PLAN: We will continue Flagyl and Zosyn. Wound care. We will get 2D echocardiogram. Thank you, Dr. Ward, for involving me in taking care of this patient. [facility]# [id number] MTDD
[2017-08-24] MEDS: metroNIDAZOLE 500mg/NS 100mL 500 MG/100 ML BAG IV SCH ×3 (03:59→20:38)
[2017-08-24] MEDS: D5-0.9%NS 1,000 ML IV SCH ×4 (04:08→12:32)
[2017-08-24 06:32] LABS: ANION GAP 9.3 (7.0-16.0); BUN - UREA NITROGEN 7 mg/dL (7-25); CALCIUM SERUM 8.7 mg/dL (8.6-10.3); CARBON DIOXIDE 21.6 mEq/L (21.0-31.0); CHLORIDE 107 mEq/L (98-107); CREATININE - SERUM 0.8 mg/dL (0.7-1.3); GFR AFRICAN-AMERICAN > 60.0 ml/min (>90); GFR NON AFRICAN-AMERICAN > 60.0 ml/min; GLUCOSE 98 mg/dL (70-105); POTASSIUM SERUM 3.9 mEq/L (3.5-5.1); SODIUM SERUM 134 mEq/L (136-145)
[2017-08-24 06:33] LABS: HEMATOCRIT 26.8 % (41.0-60); HEMOGLOBIN 8.9 gm/dL (12-16); MEAN CELL VOLUME 81.2 fl (80-99); MEAN CORPUSCULAR HEMOGLOBIN 26.9 pg (26.0-30.0); MEAN CORPUSCULAR HGB CONC 33.2 pg (28.0-36.0); MEAN PLATELET VOLUME 7.3 fl; PLATELET COUNT 468 Th/cmm (150-400); RED CELL DISTRIBUTION WIDTH 15.1 % (11.5-20.0)
[2017-08-24] MEDS: Albuterol/Ipratropium Neb 3 ML AERS HHN SCH ×4 (07:24→21:02)
[2017-08-24 08:05] LABS: BAND NEUTROPHILE 3 % (0-10); EOSINOPHIL 4 % (0-5); LYMPHOCYTE 9 % (20-50); MONOCYTE 6 % (2-10); NEUTROPHILS 78 % (40-80); TOTAL CELLS COUNTED 100
--- NOTE | 2017-08-24 08:17 | General Progress Note ---
Subjective - Review of Systems Service Date: 08/24/17 Subjective: Pt seen and eval. No pain. Resting in bed. Dr. Damon saw him. He's reviewed records from [facility]. Apparently Pt has had 7-6 abd surgeries in an attempt to close that wound. He doesn't ahve enough fascia per Dr. Damon. Pt remembers now that the sx was on may 29, 2017 at [facility]. Pt tends to be very forgetful. no n,v,d or cp. No fevers. Has abd discomfort. No falls or sz. Objective - Results Result Diagrams: 08/24/17 04:56 08/24/17 04:56 Recent Labs: Laboratory Last Values WBC 17.0 Th/cmm (4.8-10.8) H 08/24/17 04:56 RBC 3.30 Mil/cmm (4.30-5.70) L 08/24/17 04:56 Hgb 8.9 gm/dL (12-16) L 08/24/17 04:56 Hct 26.8 % (41.0-60) L 08/24/17 04:56 MCV 81.2 fl (80-99) 08/24/17 04:56 MCH 26.9 pg (26.0-30.0) 08/24/17 04:56 MCHC Differential 33.2 pg (28.0-36.0) 08/24/17 04:56 RDW 15.1 % (11.5-20.0) 08/24/17 04:56 Plt Count 468 Th/cmm (150-400) H 08/24/17 04:56 MPV 7.3 fl 08/24/17 04:56 Neutrophils % 71.8 % (40.0-80.0) 08/23/17 04:50 Band Neutrophils % 3 % (0-10) 08/24/17 04:56 Lymphocytes % 15.3 % (20.0-50.0) L 08/23/17 04:50 Monocytes % 7.6 % (2.0-10.0) 08/23/17 04:50 Eosinophils % 4.8 % (0.0-5.0) 08/23/17 04:50 Basophils % 0.5 % (0.0-2.0) 08/23/17 04:50 Neutrophils (Manual) 78 % (40-80) 08/24/17 04:56 Lymphocytes 9 % (20-50) L 08/24/17 04:56 Monocytes 6 % (2-10) 08/24/17 04:56 Eosinophils 4 % (0-5) 08/24/17 04:56 Atypical Lymphocytes 1 % 08/19/17 16:07 Hypochromia 1+ 08/19/17 16:07 Platelet Estimate SLIGHT DECREASED (NORMAL) 08/20/17 09:30 Microcytosis 1+ 08/19/17 16:07 PT 18.4 SECONDS (9.5-11.5) H 08/19/17 16:07 INR 1.72 (0.5-1.4) H 08/19/17 16:07 Sodium 134 mEq/L (136-145) L 08/24/17 04:56 Potassium 3.9 mEq/L (3.5-5.1) 08/24/17 04:56 Chloride 107 mEq/L (98-107) 08/24/17 04:56 Carbon Dioxide 21.6 mEq/L (21.0-31.0) 08/24/17 04:56 Anion Gap 9.3 (7.0-16.0) 08/24/17 04:56 BUN 7 mg/dL (7-25) 08/24/17 04:56 Creatinine 0.8 mg/dL (0.7-1.3) 08/24/17 04:56 Est GFR ( Amer) > 60.0 ml/min (>90) 08/24/17 04:56 Est GFR (Non-Af Amer) > 60.0 ml/min 08/24/17 04:56 BUN/Creatinine Ratio 8.8 08/24/17 04:56 Glucose 98 mg/dL (70-105) 08/24/17 04:56 Hemoglobin A1c % 5.7 % (4.0-6.0) 08/22/17 05:25 Whole Bld Lactic Acid 1.97 mmol/L (0.60-1.99) 08/19/17 16:07 Calcium 8.7 mg/dL (8.6-10.3) 08/24/17 04:56 Magnesium 1.9 mg/dL (1.9-2.7) 08/20/17 09:30 Total Bilirubin 0.6 mg/dL (0.3-1.0) 08/20/17 09:30 AST 25 U/L (13-39) 08/20/17 09:30 ALT 37 U/L (7-52) 08/20/17 09:30 Alkaline Phosphatase 84 U/L (34-104) 08/20/17 09:30 Creatine Kinase 12 U/L (30-223) L 08/19/17 16:07 Troponin I < 0.01 ng/mL (0.01-0.05) L 08/19/17 16:07 B-Natriuretic Peptide 11.7 pg/mL (5.0-100.0) 08/19/17 16:07 Total Protein 7.2 gm/dL (6.0-8.3) 08/20/17 09:30 Albumin 3.1 gm/dL (4.2-5.5) L 08/20/17 09:30 Globulin 4.1 gm/dL 08/20/17 09:30 Albumin/Globulin Ratio 0.8 (1.0-1.8) L 08/20/17 09:30 Triglycerides 160 mg/dL (<150) H 08/19/17 16:07 Cholesterol 78 mg/dL (<200) 08/19/17 16:07 LDL Cholesterol Direct 30 mg/dL (75-193) L 08/19/17 16:07 HDL Cholesterol 35 mg/dL (23-92) 08/19/17 16:07 Amylase 71 U/L (29-103) 08/19/17 16:07 Lipase 19 U/L (11-82) 08/19/17 16:07 - Physical Exam Vitals and I&O: Vital Signs Temp 97.8 F 08/24/17 04:00 Pulse 102 08/24/17 07:25 Resp 12 08/24/17 07:25 BP 137/62 08/24/17 04:00 Pulse Ox 93 08/24/17 07:25 Intake & Output 08/23/17 08/24/17 08/24/17 18:59 06:59 18:59 Intake Total 1200 1446.25 50 Output Total 600 Balance 1200 846.25 50 Weight (lbs) 102.058 kg Intake: Intake, IV Amount 1200 1446.25 50 D5-0.9%Ns 1,000 ml @ 75 1000 1146.25 mls/hr IV .[id number] [facility] Rx #:[id number] Piperacillin Sodium/ 100 100 50 Tazobact 2.25 gm In Sodium Chloride 0.9% 50 ml @ 100 mls/hr IV Q6H [facility] Rx#:[id number] metroNIDAZOLE 500mg/NS 100 200 100mL 500 mg In 100 ml @ 100 mls/hr IV Q8HR [facility] Rx #:[id number] Output: Stool 600 Other: # Voids 2 Stool Characteristics Liquid Liquid Active Medications: Current Medications Acetaminophen (Tylenol) 650 mg PO Q6HR PRN PRN Reason: MILD PAIN Stop: 10/18/17 18:50 Albuterol/Ipratropium (Duoneb Neb) 3 ml HHN QIDRT [facility] Stop: 10/19/17 06:59 Last Admin: 08/24/17 07:24 Dose: 3 ml Ascorbic Acid (Vitamin C) 500 mg PO DAILY [facility] Stop: 10/19/17 08:59 Last Admin: 08/23/17 08:39 Dose: 500 mg Aspirin (Aspirin Chewable) 81 mg PO DAILY [facility] Stop: 10/19/17 08:59 Last Admin: 08/23/17 08:39 Dose: 81 mg Atorvastatin Calcium (Lipitor) 40 mg PO HS [facility] Stop: 10/19/17 20:59 Last Admin: 08/23/17 21:08 Dose: 40 mg Enalapril Maleate (Vasotec) 5 mg PO DAILY [facility] Stop: 10/19/17 08:59 Last Admin: 08/23/17 08:38 Dose: 5 mg Famotidine (Pepcid) 20 mg PO Q12H [facility] Stop: 10/18/17 18:59 Last Admin: 08/24/17 06:05 Dose: 20 mg Heparin Sodium (Porcine) (Heparin) 5,000 units SUBQ Q12HR [facility] Stop: 10/19/17 11:59 Last Admin: 08/23/17 21:15 Dose: 5,000 units Hydroxyzine HCl (Atarax) 25 mg PO Q8H [facility] Stop: 10/18/17 18:59 Last Admin: 08/24/17 02:03 Dose: 25 mg Piperacillin Sod/Tazobactam (Sod 2.25 gm/ Sodium Chloride) 50 mls @ 100 mls/hr IV Q6H [facility] Stop: 10/18/17 18:59 Last Infusion: 08/24/17 07:50 Dose: Infused Dextrose/Sodium Chloride (D5-0.9%Ns) 1,000 mls @ 75 mls/hr IV .[id number] [facility] Stop: 10/19/17 08:44 Last Admin: 08/24/17 06:09 Dose: 75 mls/hr Magnesium Sulfate (Magnesium Sulfate Premix) 2 gm in 50 mls @ 25 mls/hr IV DAILY PRN PRN Reason: Magnesium level less than 1.6 Stop: 10/19/17 08:47 Metronidazole (Flagyl) 500 mg in 100 mls @ 100 mls/hr IV Q8HR [facility] Stop: 10/20/17 08:59 Last Infusion: 08/24/17 06:10 Dose: Infused Lactobacillus Rhamnosus (Culturelle 15b) 1 each PO DAILY [facility] Stop: 10/19/17 08:59 Last Admin: 08/23/17 08:37 Dose: 1 each Loperamide HCl (Imodium) 2 mg PO Q12H [facility] Stop: 10/18/17 18:59 Last Admin: 08/24/17 06:05 Dose: 2 mg Lorazepam (Ativan) 0.5 mg PO Q6H PRN; Protocol PRN Reason: Anxiety Stop: 10/18/17 18:50 Miscellaneous (Probiotic Screen) 1 ea MC PRN PRN PRN Reason: PROTOCOL Stop: 10/21/17 12:14 Morphine Sulfate (Morphine) 3 mg IVP Q4HR PRN PRN Reason: Severe Pain Stop: 10/22/17 17:51 Mupirocin (Bactroban Oint) 1 appl TP BID [facility] Stop: 09/04/17 08:59 Last Admin: 08/23/17 16:19 Dose: 1 appl Oxycodone/Acetaminophen (Percocet 5/325mg Oral Tab) 1 tab PO Q4H PRN PRN Reason: MOD PAIN Stop: 10/18/17 18:50 Last Admin: 08/23/17 16:19 Dose: 1 tab Pantoprazole Sodium (Protonix) 40 mg PO DAILY [facility] Stop: 10/19/17 08:59 Last Admin: 08/23/17 08:37 Dose: 40 mg Paroxetine HCl (Paxil) 20 mg PO DAILY [facility] Stop: 10/19/17 08:59 Last Admin: 08/23/17 08:37 Dose: 20 mg Quetiapine Fumarate (Seroquel) 200 mg PO HS LEON PRN Reason: Protocol Stop: 10/18/17 20:59 Last Admin: 08/23/17 21:09 Dose: 200 mg Sucralfate (Carafate) 1 gm PO AC LEON Stop: 10/19/17 07:29 Last Admin: 08/24/17 06:41 Dose: 1 gm General: Alert, Oriented x3, Cooperative HEENT: Atraumatic, PERRLA Neck: Supple, no JVD Cardiovascular: Regular rate, Normal S1, Normal S2 Lungs: Clear to auscultation Abdomen: Other (wound dressing intact) Assessment/Plan - Problem List Patient Problems: All Active Problems ABDOMINAL PAIN WITH NAUSEA AND DYSPNEA (Acute) - Assessment Assessment: Sepsis Abd wound dehiscence Status post splenic rupture ? Status post ex lap Alcoholism Mood disorder - Plan Plan: continue IV Zosyn and Flagyl and wound care. WBC trending up. Bone scan done. No acute issues. Continue snf meds. FU on chem 7 and cbc. ID consulted. Dr. Damon has reviewed records from [facility]. Apparentely Pt has had 7 or 8 surgeries in an attempt to close the abd wound. He doesn't have enough fascia per Dr. Damon. Nutritional Asmnt/Malnutr-PDOC - Dietary Evaluation Malnutrition Findings (Please click <Entered> for more info): Nutritional Asmnt/Malnutrition Start: 08/20/17 08: 14 Text: Status: Complete Freq: Document 08/21/17 11:25 [email or web address] (Rec: 08/21/17 11:33 [email or web address] [id number]) Nutritional Asmnt/Malnutrition Patient General Information Nutritional Screening Consult Diagnosis dehiscence of abd wound Pertinent Medical Hx/Surgical Hx prostate ca, depression, ETOH abuse, GERD, 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 Explained diet to patient and RN spoke with MD to get diet changed so patient can have more foods. Patient experiencing intermittent nausea, states eats 100% when he is not nauseous but complains he gets too much food. Explained meal ordering process to patient. Patient denies chewing and swallowing issues. patient continues to repeat that he does not like wasting food and wants smaller lunches, unable to obtain any more pertinent information because of this. Current Diet Order/ Nutrition Support cardiac -> just changed to regular Patient / S.O Not Indicated Pertinent Medications vitamin c, vasoctec, pepcid, culturelle, immodium, mgso4, protonix Pertinent Labs 08/21 Na: 134, glucose: 127-141 Nutritional Hx/Data Height 1.63 m Height (Calculated Centimeters) 162.6 Current Weight (lbs) 92.986 kg Weight (Calculated Kilograms) 93.0 Weight (Calculated Grams) 80418.4 Douglas Body Weight 130 % Douglas Body Weight 158 Body Mass Index (BMI) 35.2 Weight Status Obese GI Symptoms GI Symptoms None Last BM BM: 08/21 Difficult in: None Skin Integrity/Comment: sacrum: stage II, surgical wound to abdomen Current %PO Good (75-100%) Estimated Nutritional Goals BEE in Kcals: Adj wt of IBW Calories/Kcals/Kg 25-30 Kcals Calculated 9980-5529 Protein: Adj wt of IBW Protein g/k-1.2 Protein Calculated 68-82 g Fluid: ml 0498-8918 mL (1 ml/kcal) Nutritional Problem 1. Problem Problem increased nutrient needs Etiology wounds Signs/Symptoms: stage II pressure ulcer Malnutrition Alert Is there a minimum of two criteria No selected? Query Text:Check all the applicable criteria. A minimum of two criteria are recommended for diagnosis of either severe or non-severe malnutrition. Malnutrition Related to Morbid Obesity Malnutrition related to morbid obesity No Intervention/Recommendation Recommendations by RD Protein supplementation Comments 1. Continue regular diet 2. Vanilla boost daily with breakfast for wound healingn Expected Outcomes/Goals Expected Outcomes/Goals PO intake >50%, improved skin integrity monitor wt, labs, skin, PO intake
[2017-08-24] MEDS: Pantoprazole 40 mg EC Tab PO SCH (08:49)
[2017-08-24] MEDS: Lactobacillus Rhamnosus GG 15 Billion CFU CAP.SPRINK PO SCH (08:49)
[2017-08-24] MEDS: Aspirin 81mg Chewable Tab PO SCH (08:49)
[2017-08-24] MEDS: Multivitamin w/ Minerals Tab PO SCH (08:50)
--- NOTE | 2017-08-24 13:57 | General Progress Note ---
Subjective - Review of Systems Service Date: 08/24/17 Events since last encounter: PSA normal no evidence of bone mets on scan discussed with - patient needs referral to [facility] for definitive closure of dehiscence, havd had several tries at [facility] Objective - Results Result Diagrams: 08/24/17 04:56 08/24/17 04:56 Recent Labs: Laboratory Last Values WBC 17.0 Th/cmm (4.8-10.8) H 08/24/17 04:56 RBC 3.30 Mil/cmm (4.30-5.70) L 08/24/17 04:56 Hgb 8.9 gm/dL (12-16) L 08/24/17 04:56 Hct 26.8 % (41.0-60) L 08/24/17 04:56 MCV 81.2 fl (80-99) 08/24/17 04:56 MCH 26.9 pg (26.0-30.0) 08/24/17 04:56 MCHC Differential 33.2 pg (28.0-36.0) 08/24/17 04:56 RDW 15.1 % (11.5-20.0) 08/24/17 04:56 Plt Count 468 Th/cmm (150-400) H 08/24/17 04:56 MPV 7.3 fl 08/24/17 04:56 Neutrophils % 71.8 % (40.0-80.0) 08/23/17 04:50 Band Neutrophils % 3 % (0-10) 08/24/17 04:56 Lymphocytes % 15.3 % (20.0-50.0) L 08/23/17 04:50 Monocytes % 7.6 % (2.0-10.0) 08/23/17 04:50 Eosinophils % 4.8 % (0.0-5.0) 08/23/17 04:50 Basophils % 0.5 % (0.0-2.0) 08/23/17 04:50 Neutrophils (Manual) 78 % (40-80) 08/24/17 04:56 Lymphocytes 9 % (20-50) L 08/24/17 04:56 Monocytes 6 % (2-10) 08/24/17 04:56 Eosinophils 4 % (0-5) 08/24/17 04:56 Atypical Lymphocytes 1 % 08/19/17 16:07 Hypochromia 1+ 08/19/17 16:07 Platelet Estimate SLIGHT DECREASED (NORMAL) 08/20/17 09:30 Microcytosis 1+ 08/19/17 16:07 PT 18.4 SECONDS (9.5-11.5) H 08/19/17 16:07 INR 1.72 (0.5-1.4) H 08/19/17 16:07 Sodium 134 mEq/L (136-145) L 08/24/17 04:56 Potassium 3.9 mEq/L (3.5-5.1) 08/24/17 04:56 Chloride 107 mEq/L (98-107) 08/24/17 04:56 Carbon Dioxide 21.6 mEq/L (21.0-31.0) 08/24/17 04:56 Anion Gap 9.3 (7.0-16.0) 08/24/17 04:56 BUN 7 mg/dL (7-25) 08/24/17 04:56 Creatinine 0.8 mg/dL (0.7-1.3) 08/24/17 04:56 Est GFR ( Amer) > 60.0 ml/min (>90) 08/24/17 04:56 Est GFR (Non-Af Amer) > 60.0 ml/min 08/24/17 04:56 BUN/Creatinine Ratio 8.8 08/24/17 04:56 Glucose 98 mg/dL (70-105) 08/24/17 04:56 Hemoglobin A1c % 5.7 % (4.0-6.0) 08/22/17 05:25 Whole Bld Lactic Acid 1.97 mmol/L (0.60-1.99) 08/19/17 16:07 Calcium 8.7 mg/dL (8.6-10.3) 08/24/17 04:56 Magnesium 1.9 mg/dL (1.9-2.7) 08/20/17 09:30 Total Bilirubin 0.6 mg/dL (0.3-1.0) 08/20/17 09:30 AST 25 U/L (13-39) 08/20/17 09:30 ALT 37 U/L (7-52) 08/20/17 09:30 Alkaline Phosphatase 84 U/L (34-104) 08/20/17 09:30 Creatine Kinase 12 U/L (30-223) L 08/19/17 16:07 Troponin I < 0.01 ng/mL (0.01-0.05) L 08/19/17 16:07 B-Natriuretic Peptide 11.7 pg/mL (5.0-100.0) 08/19/17 16:07 Total Protein 7.2 gm/dL (6.0-8.3) 08/20/17 09:30 Albumin 3.1 gm/dL (4.2-5.5) L 08/20/17 09:30 Globulin 4.1 gm/dL 08/20/17 09:30 Albumin/Globulin Ratio 0.8 (1.0-1.8) L 08/20/17 09:30 Triglycerides 160 mg/dL (<150) H 08/19/17 16:07 Cholesterol 78 mg/dL (<200) 08/19/17 16:07 LDL Cholesterol Direct 30 mg/dL (75-193) L 08/19/17 16:07 HDL Cholesterol 35 mg/dL (23-92) 08/19/17 16:07 Amylase 71 U/L (29-103) 08/19/17 16:07 Lipase 19 U/L (11-82) 08/19/17 16:07 Prostate Specific Ag 2.8 ng/mL (0.0-4.0) 08/23/17 04:50 - Physical Exam Vitals and I&O: Vital Signs Temp 98 F 08/24/17 08:00 Pulse 94 08/24/17 10:44 Resp 14 08/24/17 10:44 BP 110/63 08/24/17 08:50 Pulse Ox 97 08/24/17 10:44 Intake & Output 08/23/17 08/24/17 08/24/17 18:59 06:59 18:59 Intake Total 1200 1446.25 728.75 Output Total 600 Balance 1200 846.25 728.75 Weight (lbs) 102.058 kg 102.058 kg Intake: Intake, IV Amount 1200 1446.25 528.75 D5-0.9%Ns 1,000 ml @ 75 1000 1146.25 478.75 mls/hr IV .[id number] [facility] Rx #:[id number] Piperacillin Sodium/ 100 100 50 Tazobact 2.25 gm In Sodium Chloride 0.9% 50 ml @ 100 mls/hr IV Q6H [facility] Rx#:[id number] metroNIDAZOLE 500mg/NS 100 200 100mL 500 mg In 100 ml @ 100 mls/hr IV Q8HR [facility] Rx #:[id number] Oral 200 Output: Stool 600 Other: # Voids 2 Stool Characteristics Liquid Liquid Liquid Active Medications: Current Medications Acetaminophen (Tylenol) 650 mg PO Q6HR PRN PRN Reason: MILD PAIN Stop: 10/18/17 18:50 Albuterol/Ipratropium (Duoneb Neb) 3 ml HHN QIDRT [facility] Stop: 10/19/17 06:59 Last Admin: 08/24/17 10:42 Dose: 3 ml Ascorbic Acid (Vitamin C) 500 mg PO DAILY [facility] Stop: 10/19/17 08:59 Last Admin: 08/24/17 08:49 Dose: 500 mg Aspirin (Aspirin Chewable) 81 mg PO DAILY [facility] Stop: 10/19/17 08:59 Last Admin: 08/24/17 08:49 Dose: 81 mg Atorvastatin Calcium (Lipitor) 40 mg PO HS [facility] Stop: 10/19/17 20:59 Last Admin: 08/23/17 21:08 Dose: 40 mg Enalapril Maleate (Vasotec) 5 mg PO DAILY [facility] Stop: 10/19/17 08:59 Last Admin: 08/24/17 08:50 Dose: 5 mg Famotidine (Pepcid) 20 mg PO Q12H [facility] Stop: 10/18/17 18:59 Last Admin: 08/24/17 06:05 Dose: 20 mg Heparin Sodium (Porcine) (Heparin) 5,000 units SUBQ Q12HR [facility] Stop: 10/19/17 11:59 Last Admin: 08/24/17 08:50 Dose: 5,000 units Hydroxyzine HCl (Atarax) 25 mg PO Q8H [facility] Stop: 10/18/17 18:59 Last Admin: 08/24/17 11:00 Dose: 25 mg Piperacillin Sod/Tazobactam (Sod 2.25 gm/ Sodium Chloride) 50 mls @ 100 mls/hr IV Q6H [facility] Stop: 10/18/17 18:59 Last Admin: 02/24/18 12:24 Dose: 100 mls/hr Dextrose/Sodium Chloride (D5-0.9%Ns) 1,000 mls @ 75 mls/hr IV .[id number] [facility] Stop: 10/19/17 08:44 Last Admin: 08/24/17 12:32 Dose: 75 mls/hr Magnesium Sulfate (Magnesium Sulfate Premix) 2 gm in 50 mls @ 25 mls/hr IV DAILY PRN PRN Reason: Magnesium level less than 1.6 Stop: 10/19/17 08:47 Metronidazole (Flagyl) 500 mg in 100 mls @ 100 mls/hr IV Q8HR [facility] Stop: 10/20/17 08:59 Last Admin: 08/24/17 12:26 Dose: 100 mls/hr Lactobacillus Rhamnosus (Culturelle 15b) 1 each PO DAILY [facility] Stop: 10/19/17 08:59 Last Admin: 08/24/17 08:49 Dose: 1 each Loperamide HCl (Imodium) 2 mg PO Q12H [facility] Stop: 10/18/17 18:59 Last Admin: 08/24/17 06:05 Dose: 2 mg Lorazepam (Ativan) 0.5 mg PO Q6H PRN; Protocol PRN Reason: Anxiety Stop: 10/18/17 18:50 Miscellaneous (Probiotic Screen) 1 ea MC PRN PRN PRN Reason: PROTOCOL Stop: 10/21/17 12:14 Morphine Sulfate (Morphine) 3 mg IVP Q4HR PRN PRN Reason: Severe Pain Stop: 10/22/17 17:51 Mupirocin (Bactroban Oint) 1 appl TP BID [facility] Stop: 09/04/17 08:59 Last Admin: 08/24/17 08:49 Dose: 1 appl Oxycodone/Acetaminophen (Percocet 5/325mg Oral Tab) 1 tab PO Q4H PRN PRN Reason: MOD PAIN Stop: 10/18/17 18:50 Last Admin: 08/23/17 16:19 Dose: 1 tab Pantoprazole Sodium (Protonix) 40 mg PO DAILY [facility] Stop: 10/19/17 08:59 Last Admin: 08/24/17 08:49 Dose: 40 mg Paroxetine HCl (Paxil) 20 mg PO DAILY [facility] Stop: 10/19/17 08:59 Last Admin: 08/24/17 08:49 Dose: 20 mg Quetiapine Fumarate (Seroquel) 200 mg PO HS [facility] PRN Reason: Protocol Stop: 10/18/17 20:59 Last Admin: 08/23/17 21:09 Dose: 200 mg Sucralfate (Carafate) 1 gm PO AC [facility] Stop: 10/19/17 07:29 Last Admin: 08/24/17 12:26 Dose: 1 gm General: Alert, Oriented x3, Cooperative HEENT: Atraumatic, PERRLA Neck: Supple, no JVD Cardiovascular: Regular rate, Normal S1, Normal S2 Lungs: Clear to auscultation Abdomen: Other (wound dressing intact) Assessment/Plan - Problem List Patient Problems: All Active Problems ABDOMINAL PAIN WITH NAUSEA AND DYSPNEA (Acute) Nutritional Asmnt/Malnutr-PDOC - Dietary Evaluation Malnutrition Findings (Please click <Entered> for more info): Nutritional Asmnt/Malnutrition Start: 08/20/17 08: 14 Text: Status: Complete Freq: Document 08/21/17 11:25 [email or web address] (Rec: 08/21/17 11:33 [email or web address] [id number]) Nutritional Asmnt/Malnutrition Patient General Information Nutritional Screening Consult Diagnosis dehiscence of abd wound Pertinent Medical Hx/Surgical Hx prostate ca, depression, ETOH abuse, GERD, 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 Explained diet to patient and RN spoke with MD to get diet changed so patient can have more foods. Patient experiencing intermittent nausea, states eats 100% when he is not nauseous but complains he gets too much food. Explained meal ordering process to patient. Patient denies chewing and swallowing issues. patient continues to repeat that he does not like wasting food and wants smaller lunches, unable to obtain any more pertinent information because of this. Current Diet Order/ Nutrition Support cardiac -> just changed to regular Patient / S.O Not Indicated Pertinent Medications vitamin c, vasoctec, pepcid, culturelle, immodium, mgso4, protonix Pertinent Labs 08/21 Na: 134, glucose: 127-141 Nutritional Hx/Data Height 1.63 m Height (Calculated Centimeters) 162.6 Current Weight (lbs) 92.986 kg Weight (Calculated Kilograms) 93.0 Weight (Calculated Grams) 67814.4 [place] Body Weight 130 % [place] Body Weight 158 Body Mass Index (BMI) 35.2 Weight Status Obese GI Symptoms GI Symptoms None Last BM BM: 08/21 Difficult in: None Skin Integrity/Comment: sacrum: stage II, surgical wound to abdomen Current %PO Good (75-100%) Estimated Nutritional Goals BEE in Kcals: Adj wt of IBW Calories/Kcals/Kg 25-30 Kcals Calculated 7567-7391 Protein: Adj wt of IBW Protein g/k-1.2 Protein Calculated 68-82 g Fluid: ml 3751-1174 mL (1 ml/kcal) Nutritional Problem 1. Problem Problem increased nutrient needs Etiology wounds Signs/Symptoms: stage II pressure ulcer Malnutrition Alert Is there a minimum of two criteria No selected? Query Text:Check all the applicable criteria. A minimum of two criteria are recommended for diagnosis of either severe or non-severe malnutrition. Malnutrition Related to Morbid Obesity Malnutrition related to morbid obesity No Intervention/Recommendation Recommendations by RD Protein supplementation Comments 1. Continue regular diet 2. Vanilla boost daily with breakfast for wound healingn Expected Outcomes/Goals Expected Outcomes/Goals PO intake >50%, improved skin integrity monitor wt, labs, skin, PO intake
[2017-08-24] MEDS: Morphine Sulfate 2 mg/mL 1mL Syr IVP PRN (15:34)
--- NOTE | 2017-08-24 19:04 | Consultation ---
DATE OF CONSULTATION: 08/23/[address] Ward. HISTORY OF PRESENT ILLNESS: This is a 57-year-old morbidly obese male patient who had been admitted to [facility] with megacolon following this patient had exploratory laparotomy with partial colectomy and after then, the patient continued to have 6 to 7 surgery. At the present time, the patient has dehiscence of the wound. The patient is admitted for closure of the wound. At this time, the patient developed supraventricular tachycardia and hence Cardiology consult was requested. PAST MEDICAL HISTORY: Hypertension, C. diff colitis, hyperlipidemia, megacolon, partial colectomy, open abdominal wound, ileostomy, alcohol dependence, major depression, and obesity. FAMILY HISTORY: Unremarkable. SOCIAL HISTORY: The patient has a history of alcohol dependence. ALLERGIES: None. PHYSICAL EXAMINATION: VITAL SIGNS: Blood pressure 130/80, pulse 110, and respirations 28. HEAD: Normocephalic. No lumps or bumps. EYES: Pupils equal, reactive to light. Fundi show AV nicking, sclerae white, conjunctivae pink. NECK: Carotid 2+. Normal upstroke. JVD flat. Thyroid not palpable. Lymph nodes not palpable. CHEST: Shows increased AP diameter. No kyphosis, scoliosis. LUNGS: Bilateral bronchovesicular breath sounds. HEART: PMI fifth intercostal space with lateral to midclavicular line. S1, S2. No S3, S4. ABDOMEN: Has dehiscence of the wound, with ileostomy. NEUROLOGICAL: Unremarkable. EXTREMITIES: Peripheral pulses 1+. No pedal edema. CLINICAL IMPRESSION: Supraventricular tachycardia, hypertension, Clostridium difficile colitis, hyperlipidemia, megacolon with partial colectomy, open abdominal wound, ileostomy, alcohol dependence, major depression. PLAN: We will control the heart rate due to surgical evaluation, Infectious Disease evaluation. JOB# [id number]
[2017-08-25] MEDS: D5-0.9%NS 1,000 ML IV SCH (05:16)
[2017-08-25] MEDS: metroNIDAZOLE 500mg/NS 100mL 500 MG/100 ML BAG IV SCH ×2 (05:17→12:38)
[2017-08-25] MEDS: Albuterol/Ipratropium Neb 3 ML AERS HHN SCH ×2 (06:57→10:43)
[2017-08-25 07:00] LABS: HEMATOCRIT 28.6 % (41.0-60); HEMOGLOBIN 9.5 gm/dL (12-16); MEAN CORPUSCULAR HEMOGLOBIN 26.9 pg (26.0-30.0)
[2017-08-25 07:04] LABS: MEAN CELL VOLUME 81.1 fl (80-99); MEAN CORPUSCULAR HGB CONC 33.2 pg (28.0-36.0); MEAN PLATELET VOLUME 6.7 fl; PLATELET COUNT 500 Th/cmm (150-400); RED BLOOD COUNT 3.53 Mil/cmm (4.30-5.70); RED CELL DISTRIBUTION WIDTH 15.2 % (11.5-20.0)
[2017-08-25 07:10] LABS: WHITE BLOOD COUNT 13.7 Th/cmm (4.8-10.8)
[2017-08-25 07:22] LABS: ANION GAP 10.3 (7.0-16.0); BUN - UREA NITROGEN 6 mg/dL (7-25); CALCIUM SERUM 9.1 mg/dL (8.6-10.3); CARBON DIOXIDE 23.3 mEq/L (21.0-31.0); CHLORIDE 109 mEq/L (98-107); CREATININE - SERUM 0.9 mg/dL (0.7-1.3); GFR AFRICAN-AMERICAN > 60.0 ml/min (>90); GFR NON AFRICAN-AMERICAN > 60.0 ml/min; GLUCOSE 94 mg/dL (70-105); POTASSIUM SERUM 3.6 mEq/L (3.5-5.1); SODIUM SERUM 139 mEq/L (136-145)
[2017-08-25 07:56] LABS: BAND NEUTROPHILE 4 % (0-10); EOSINOPHIL 11 % (0-5); LYMPHOCYTE 24 % (20-50); MONOCYTE 4 % (2-10); NEUTROPHILS 57 % (40-80); TOTAL CELLS COUNTED 100
[2017-08-25] MEDS: Multivitamin w/ Minerals Tab PO SCH (08:29)
[2017-08-25] MEDS: Lactobacillus Rhamnosus GG 15 Billion CFU CAP.SPRINK PO SCH (08:29)
[2017-08-25] MEDS: Aspirin 81mg Chewable Tab PO SCH (08:29)
[2017-08-25] MEDS: Pantoprazole 40 mg EC Tab PO SCH (08:30)
--- NOTE | 2017-08-25 10:14 | Discharge Summary ---
DATE OF DISCHARGE: 08/25/2017 CAUSE OF ADMISSION: The patient is a 57-year-old male. He has a history of alcohol abuse. He is originally from [place]. He has been living in [facility], in [place]. He has been in a sober house. He states that his sneezed very hard and he had abdominal pain. He was sent to the hospital where he had exploratory laparotomy and ostomy placement as well. He states that he has ruptured his spleen. His history has been changing every day. ADMITTING DIAGNOSES: 1. Abdominal wall dehiscence. 2. Sepsis. 3. Reactive thrombocytosis. 4. Status post splenic rupture? 5. Status post surgery. 6. Gastroesophageal reflux disease. 7. Hyponatremia. 8. Moderate malnutrition. 9. Depression. DISCHARGE DIAGNOSES: 1. Abdominal wall dehiscence. 2. Sepsis. 3. Reactive thrombocytosis. 4. Status post splenic rupture? 5. Status post surgery. 6. Gastroesophageal reflux disease. 7. Hyponatremia. 8. Moderate malnutrition. 9. Depression. SUMMARY OF HOSPITAL COURSE: Dr. Damon was consulted for Surgery. The patient was placed on IV Zosyn. ID was consulted. We added Flagyl. The white count has been trending down. The patient has been eating well and having routine bowel movements. He no longer has any pain. His white count has been trending down. He is afebrile. He has been cleared by Surgery. Dr. Damon reviewed records from [facility]. I discussed care plan with Dr. Damon on numerous occasions. According to Dr. Damon, the patient has had about 7 surgeries and they were unable to close his wound as he has no more fascia left. He believes that if the patient does not improve, he needs to go to higher level of care. The patient [facility] to [facility] to the [facility] facility as he has been receiving wound care for months since the surgery. PHYSICAL EXAMINATION: VITAL SIGNS: Are the following; temperature is 97.8 degrees, heart rate is 90, respirations are 18, and blood pressure 113/66. Currently, no pain. GENERAL: No acute distress, awake, alert. HEENT: No acute issues. NECK: Trachea is midline. ABDOMEN: Wound dressing is intact. RESPIRATORY: Clear. LABORATORY DATA: White count has trended down to 13.7, hemoglobin is 9.5, and platelet count is 500,000. Sodium 139, potassium 3.6, chloride 109, bicarb 23.3, BUN 6, creatinine 0.9. The patient's hemoglobin A1c is at 5.7. PSA is 2.8. PROGNOSIS: Fair. ACTIVITY: As tolerated. DISPOSITION: He is being discharged back to the [facility] facility. MEDICATIONS: We will continue IV Zosyn and Flagyl for at least 5 more days. FOLLOWUP: He is to follow up with his PCP and follow up with his surgeon at [facility]. The patient said he will be going back to [place]. He says that he needs to go back before 09/03/2017 because he has to sign his lease and he plans on following up at [facility] anyhow. However, I explained to the patient that if he does not continue to improve, I will be transferring him to a higher level of care from the [facility] facility as he still will need to be seen by Surgery. CONSULTS: Dr. Damon for Surgery and Dr. Rodriguez for ID. JOB# [id number]
--- NOTE | 2017-08-25 12:31 | Infectious Disease Prog Note ---
Infectious Disease Subjective - Review of Systems Service Date: 08/25/17 Subjective: No new change, no fever, Infectious Disease Objective - Results Result Diagrams: 08/25/17 06:52 08/25/17 06:52 Recent Labs: Laboratory Last Values WBC 13.7 Th/cmm (4.8-10.8) H 08/25/17 06:52 RBC 3.53 Mil/cmm (4.30-5.70) L 08/25/17 06:52 Hgb 9.5 gm/dL (12-16) L 08/25/17 06:52 Hct 28.6 % (41.0-60) L 08/25/17 06:52 MCV 81.1 fl (80-99) 08/25/17 06:52 MCH 26.9 pg (26.0-30.0) 08/25/17 06:52 MCHC Differential 33.2 pg (28.0-36.0) 08/25/17 06:52 RDW 15.2 % (11.5-20.0) 08/25/17 06:52 Plt Count 500 Th/cmm (150-400) H 08/25/17 06:52 MPV 6.7 fl 08/25/17 06:52 Neutrophils % [employer] 08/25/17 06:52 Band Neutrophils % 4 % (0-10) 08/25/17 06:52 Lymphocytes % [employer] INSPECTOR 08/25/17 06:52 Monocytes % [employer]HER INSPECTOR 08/25/17 06:52 Eosinophils % [employer]OSHER INSPECTOR 08/25/17 06:52 Basophils % K[employer]HER INSPECTOR 08/25/17 06:52 Neutrophils (Manual) 57 % (40-80) 08/25/17 06:52 Lymphocytes 24 % (20-50) 08/25/17 06:52 Monocytes 4 % (2-10) 08/25/17 06:52 Eosinophils 11 % (0-5) H 08/25/17 06:52 Atypical Lymphocytes 1 % 08/19/17 16:07 Hypochromia 1+ 08/19/17 16:07 Platelet Estimate SLIGHT DECREASED (NORMAL) 08/20/17 09:30 Microcytosis 1+ 08/19/17 16:07 PT 18.4 SECONDS (9.5-11.5) H 08/19/17 16:07 INR 1.72 (0.5-1.4) H 08/19/17 16:07 Sodium 139 mEq/L (136-145) 08/25/17 06:52 Potassium 3.6 mEq/L (3.5-5.1) 08/25/17 06:52 Chloride 109 mEq/L (98-107) H 08/25/17 06:52 Carbon Dioxide 23.3 mEq/L (21.0-31.0) 08/25/17 06:52 Anion Gap 10.3 (7.0-16.0) 08/25/17 06:52 BUN 6 mg/dL (7-25) L 08/25/17 06:52 Creatinine 0.9 mg/dL (0.7-1.3) 08/25/17 06:52 Est GFR ( Amer) > 60.0 ml/min (>90) 08/25/17 06:52 Est GFR (Non-Af Amer) > 60.0 ml/min 08/25/17 06:52 BUN/Creatinine Ratio 6.7 08/25/17 06:52 Glucose 94 mg/dL (70-105) 08/25/17 06:52 Hemoglobin A1c % 5.7 % (4.0-6.0) 08/22/17 05:25 Whole Bld Lactic Acid 1.97 mmol/L (0.60-1.99) 08/19/17 16:07 Calcium 9.1 mg/dL (8.6-10.3) 08/25/17 06:52 Magnesium 1.9 mg/dL (1.9-2.7) 08/20/17 09:30 Total Bilirubin 0.6 mg/dL (0.3-1.0) 08/20/17 09:30 AST 25 U/L (13-39) 08/20/17 09:30 ALT 37 U/L (7-52) 08/20/17 09:30 Alkaline Phosphatase 84 U/L (34-104) 08/20/17 09:30 Creatine Kinase 12 U/L (30-223) L 08/19/17 16:07 Troponin I < 0.01 ng/mL (0.01-0.05) L 08/19/17 16:07 B-Natriuretic Peptide 11.7 pg/mL (5.0-100.0) 08/19/17 16:07 Total Protein 7.2 gm/dL (6.0-8.3) 08/20/17 09:30 Albumin 3.1 gm/dL (4.2-5.5) L 08/20/17 09:30 Globulin 4.1 gm/dL 08/20/17 09:30 Albumin/Globulin Ratio 0.8 (1.0-1.8) L 08/20/17 09:30 Triglycerides 160 mg/dL (<150) H 08/19/17 16:07 Cholesterol 78 mg/dL (<200) 08/19/17 16:07 LDL Cholesterol Direct 30 mg/dL (75-193) L 08/19/17 16:07 HDL Cholesterol 35 mg/dL (23-92) 08/19/17 16:07 Amylase 71 U/L (29-103) 08/19/17 16:07 Lipase 19 U/L (11-82) 08/19/17 16:07 Prostate Specific Ag 2.8 ng/mL (0.0-4.0) 08/23/17 04:50 - Physical Exam Vitals and I&O: Vital Signs Temp 97.1 F 08/25/17 12:10 Pulse 101 08/25/17 12:10 Resp 18 08/25/17 12:10 BP 124/58 08/25/17 12:10 Pulse Ox 97 08/25/17 12:10 Intake & Output 08/24/17 08/25/17 08/25/17 18:59 06:59 18:59 Intake Total 1478.75 1400 50 Output Total 1200 Balance 278.75 1400 50 Weight (lbs) 102.058 kg 102.058 kg Intake: Intake, IV Amount 578.75 1400 50 D5-0.9%Ns 1,000 ml @ 75 478.75 1000 mls/hr IV .[id number] [facility] Rx #:[id number] Piperacillin Sodium/ 100 100 50 Tazobact 2.25 gm In Sodium Chloride 0.9% 50 ml @ 100 mls/hr IV Q6H [facility] Rx#:[id number] metroNIDAZOLE 500mg/NS 300 100mL 500 mg In 100 ml @ 100 mls/hr IV Q8HR [facility] Rx #:[id number] Oral 900 Output: Urine 800 Stool 400 Other: Stool Characteristics Liquid Liquid Liquid Active Medications: Current Medications Acetaminophen (Tylenol) 650 mg PO Q6HR PRN PRN Reason: MILD PAIN Stop: 10/18/17 18:50 Albuterol/Ipratropium (Duoneb Neb) 3 ml HHN QIDRT [facility] Stop: 10/19/17 06:59 Last Admin: 08/25/17 10:43 Dose: 3 ml Ascorbic Acid (Vitamin C) 500 mg PO DAILY [facility] Stop: 10/19/17 08:59 Last Admin: 08/25/17 08:30 Dose: 500 mg Aspirin (Aspirin Chewable) 81 mg PO DAILY [facility] Stop: 10/19/17 08:59 Last Admin: 08/25/17 08:29 Dose: 81 mg Atorvastatin Calcium (Lipitor) 40 mg PO HS [facility] Stop: 10/19/17 20:59 Last Admin: 08/24/17 20:35 Dose: 40 mg Enalapril Maleate (Vasotec) 5 mg PO DAILY [facility] Stop: 10/19/17 08:59 Last Admin: 08/25/17 08:29 Dose: 5 mg Famotidine (Pepcid) 20 mg PO Q12H [facility] Stop: 10/18/17 18:59 Last Admin: 08/25/17 08:29 Dose: 20 mg Heparin Sodium (Porcine) (Heparin) 5,000 units SUBQ Q12HR [facility] Stop: 10/19/17 11:59 Last Admin: 08/25/17 08:30 Dose: 5,000 units Hydroxyzine HCl (Atarax) 25 mg PO Q8H [facility] Stop: 10/18/17 18:59 Last Admin: 08/25/17 11:43 Dose: 25 mg Piperacillin Sod/Tazobactam (Sod 2.25 gm/ Sodium Chloride) 50 mls @ 100 mls/hr IV Q6H [facility] Stop: 10/18/17 18:59 Last Admin: 08/25/17 12:04 Dose: 100 mls/hr Dextrose/Sodium Chloride (D5-0.9%Ns) 1,000 mls @ 75 mls/hr IV .[id number] [facility] Stop: 10/19/17 08:44 Last Admin: 08/25/17 05:16 Dose: 75 mls/hr Magnesium Sulfate (Magnesium Sulfate Premix) 2 gm in 50 mls @ 25 mls/hr IV DAILY PRN PRN Reason: Magnesium level less than 1.6 Stop: 10/19/17 08:47 Metronidazole (Flagyl) 500 mg in 100 mls @ 100 mls/hr IV Q8HR [facility] Stop: 10/20/17 08:59 Last Infusion: 08/25/17 06:17 Dose: Infused Lactobacillus Rhamnosus (Culturelle 15b) 1 each PO DAILY [facility] Stop: 10/19/17 08:59 Last Admin: 08/25/17 08:29 Dose: 1 each Loperamide HCl (Imodium) 2 mg PO Q12H [facility] Stop: 10/18/17 18:59 Last Admin: 08/25/17 08:29 Dose: 2 mg Lorazepam (Ativan) 0.5 mg PO Q6H PRN; Protocol PRN Reason: Anxiety Stop: 10/18/17 18:50 Miscellaneous (Probiotic Screen) 1 ea MC PRN PRN PRN Reason: PROTOCOL Stop: 10/21/17 12:14 Morphine Sulfate (Morphine) 3 mg IVP Q4HR PRN PRN Reason: Severe Pain Stop: 10/22/17 17:51 Last Admin: 08/24/17 15:34 Dose: 3 mg Mupirocin (Bactroban Oint) 1 appl TP BID [facility] Stop: 09/04/17 08:59 Last Admin: 08/25/17 09:30 Dose: Not Given Oxycodone/Acetaminophen (Percocet 5/325mg Oral Tab) 1 tab PO Q4H PRN PRN Reason: MOD PAIN Stop: 10/18/17 18:50 Last Admin: 08/23/17 16:19 Dose: 1 tab Pantoprazole Sodium (Protonix) 40 mg PO DAILY [facility] Stop: 10/19/17 08:59 Last Admin: 08/25/17 08:30 Dose: 40 mg Paroxetine HCl (Paxil) 20 mg PO DAILY [facility] Stop: 10/19/17 08:59 Last Admin: 08/25/17 08:29 Dose: 20 mg Quetiapine Fumarate (Seroquel) 200 mg PO HS [facility] PRN Reason: Protocol Stop: 10/18/17 20:59 Last Admin: 08/24/17 20:36 Dose: 200 mg Sucralfate (Carafate) 1 gm PO AC [facility] Stop: 10/19/17 07:29 Last Admin: 08/25/17 11:43 Dose: 1 gm General: no acute distress, well developed, well nourished HEENT: atraumatic, normocephalic, PERRLA, EOMI, moist mucous membrane Neck: supple, no thyromegaly, no lymphadenopathy Cardiovascular: S1S2, regular, no systolic murmur Lungs: clear to auscultation bilaterally, clear to percussion Abdomen: soft, other (Colostomy, large abdominal wall wound with well defined border and ressish pink base.), no tender, no distended Extremities: no cyanosis, no clubbing, no edema Neurological: awake, alert, oriented Skin: intact Infectious Disease Assmt/Plan - Problem List Patient Problems: All Active Problems ABDOMINAL PAIN WITH NAUSEA AND DYSPNEA (Acute) - Assessment Assessment: 1. Leukocytosis, likely reactive, his abdominal wall wound, clean. No sign of any infection. 2. Status post multiple abdominal surgeries, history of frozen abdomen. 3. Chronic perisplenic fluid, 4. History of depression. 5. History of alcoholism. 6. Gastroesophageal reflux disease. 7. History of mood disorder. 8. History of clostridium difficile colitis and megacolon. - Plan Plan: Continue zosyn and flagyl. Nutritional Asmnt/Malnutr-PDOC - Dietary Evaluation Malnutrition Findings (Please click <Entered> for more info): Nutritional Asmnt/Malnutrition Start: 08/20/17 08: 14 Text: Status: Complete Freq: Document 08/21/17 11:25 [email or web address] (Rec: 08/21/17 11:33 [email or web address] [id number]) Nutritional Asmnt/Malnutrition Patient General Information Nutritional Screening Consult Diagnosis dehiscence of abd wound Pertinent Medical Hx/Surgical Hx prostate ca, depression, ETOH abuse, GERD, 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 Explained diet to patient and RN spoke with MD to get diet changed so patient can have more foods. Patient experiencing intermittent nausea, states eats 100% when he is not nauseous but complains he gets too much food. Explained meal ordering process to patient. Patient denies chewing and swallowing issues. patient continues to repeat that he does not like wasting food and wants smaller lunches, unable to obtain any more pertinent information because of this. Current Diet Order/ Nutrition Support cardiac -> just changed to regular Patient / S.O Not Indicated Pertinent Medications vitamin c, vasoctec, pepcid, culturelle, immodium, mgso4, protonix Pertinent Labs 08/21 Na: 134, glucose: 127-141 Nutritional Hx/Data Height 1.63 m Height (Calculated Centimeters) 162.6 Current Weight (lbs) 92.986 kg Weight (Calculated Kilograms) 93.0 Weight (Calculated Grams) 60481.4 Meally Body Weight 130 % Meally Body Weight 158 Body Mass Index (BMI) 35.2 Weight Status Obese GI Symptoms GI Symptoms None Last BM BM: 08/21 Difficult in: None Skin Integrity/Comment: sacrum: stage II, surgical wound to abdomen Current %PO Good (75-100%) Estimated Nutritional Goals BEE in Kcals: Adj wt of IBW Calories/Kcals/Kg 25-30 Kcals Calculated 2302-5604 Protein: Adj wt of IBW Protein g/k-1.2 Protein Calculated 68-82 g Fluid: ml 5839-3165 mL (1 ml/kcal) Nutritional Problem 1. Problem Problem increased nutrient needs Etiology wounds Signs/Symptoms: stage II pressure ulcer Malnutrition Alert Is there a minimum of two criteria No selected? Query Text:Check all the applicable criteria. A minimum of two criteria are recommended for diagnosis of either severe or non-severe malnutrition. Malnutrition Related to Morbid Obesity Malnutrition related to morbid obesity No Intervention/Recommendation Recommendations by RD Protein supplementation Comments 1. Continue regular diet 2. Vanilla boost daily with breakfast for wound healingn Expected Outcomes/Goals Expected Outcomes/Goals PO intake >50%, improved skin integrity monitor wt, labs, skin, PO intake
[2017-08-25] MEDS: Morphine Sulfate 2 mg/mL 1mL Syr IVP PRN (13:03)
--- NOTE | 2017-08-26 15:17 | Cardiology ---
08/23/[address] Soares. PROCEDURE: Echocardiogram. M-MODE ECHOCARDIOGRAM: Mitral valve, anterior leaflet of mitral valve shows normal excursion, EF velocity. Posterior leaflet of mitral valve shows normal excursion. Left ventricle posterior wall shows increased thickness, normal excursion. Interventricular septum shows increased thickness, normal excursion, hypertrophy of the left ventricle, ejection fraction 50%. Left atrium normal. Aortic root shows normal dimension, normal excursion of aortic leaflets. CONCLUSION: Hypertrophy of the left ventricle, ejection fraction 50%. 2D ECHO: Long axis view showed normal sized left ventricle with hypertrophy of the left ventricle. Left atrium normal. Aortic root shows normal dimension, normal excursion of aortic leaflets. Short axis view of mitral valve normal. Short axis view of aortic valve normal. Apical four chamber view showed normal sized left ventricle, left atrium, right ventricle, right atrium, tricuspid and mitral valve. Ejection fraction 50%. CONCLUSION: Hypertrophy of the left ventricle, ejection fraction 50%. Doppler study shows prominent A wave consistent with poor compliance of left ventricle with mild tricuspid regurgitation. [facility]# [id number]
== END 2017-08-25 14:52 | disposition home or self-care (01) | DRG 813 ==
LOC: ER 15:08 → TELE 19:40
PROVIDERS: ADMIT Family Medicine; ATTEND Family Medicine
DX: T81.30XA Disruption of wound, unspecified, initial encounter (principal); A41.9 Sepsis, unspecified organism; A04.72 Enterocolitis due to Clostridium difficile, not specified as recurrent; E44.0 Moderate protein-calorie malnutrition; D47.3 Essential (hemorrhagic) thrombocythemia; K21.9 Gastro-esophageal reflux disease without esophagitis; E87.1 Hypo-osmolality and hyponatremia; F33.9 Major depressive disorder, recurrent, unspecified; F10.20 Alcohol dependence, uncomplicated; F39 Unspecified mood [affective] disorder; E86.0 Dehydration; I10 Essential (primary) hypertension; E78.5 Hyperlipidemia, unspecified; M19.90 Unspecified osteoarthritis, unspecified site; Y83.8 Other surgical procedures as the cause of abnormal reaction of the patient, or of later complication, without mention of misadventure at the time of the procedure; Y92.89 Other specified places as the place of occurrence of the external cause; L03.311 Cellulitis of abdominal wall; E66.01 Morbid (severe) obesity due to excess calories; Z68.38 Body mass index [BMI] 38.0-38.9, adult; Z93.2 Ileostomy status
CPT/HCPCS: 36415-UA; 71045-TC; 78306-TC; 80048-TC; 80053-TC; 80061-TC; 82150-TC; 82550-TC; 83036-90; 83605; 83690-TC; 83735-TC; 83880-TC; 84080-90; 84153-90; 84484-TC; 85007-TC; 85025-TC; 85027-TC; 85610-TC; 90799; 93005; 94640; 94760; 97530; A9503; J0696; J1644; J2270; J2543; J7042; Q9967; X3904; Z7610